=== PATIENT | male | born 1960 | race Caucasian/White ===

== ENCOUNTER → 2017-09-30 10:39 | Outpatient (CLI) | payer MEDICARE, SELFPAY ==
[2017-09-30 11:00] LABS: Abs Immature Grans 0.03 k/cumm (0.0-0.09); Absolute Basophil Count 0.01 k/cumm (0.0-0.2); Absolute Eosinophil Count 0.07 k/cumm (0.0-0.7); Absolute Lymphocyte Count 2.08 k/cumm (1.2-3.4); Absolute Monocyte Count 0.59 k/cumm (0.11-0.7); Absolute Neutrophil Count 5.06 k/cumm (1.2-6.7); Basophils % 0.1; Eosinophils % 0.9; HCT 45.2 % (40.0-50.0); HGB 15.1 g/dL (13.5-17.5); Immature Grans % 0.4; Lymphocytes % 26.5; Mean Corp. HGB Concentration 33.4 g/dL (32.0-36.0); Mean Corpuscular Hemoglobin 30.4 pg (27.0-33.0); Mean Corpuscular Volume 91.1 fL (80-95); Mean Platelet Volume 8.8 fL (8.0-11.0); Monocytes % 7.5; Neutrophils % 64.6; Platelet Count 281 x1000/uL (130-400); RBC 4.96 m/cumm (4.50-6.00); RBC Distribution Width 14.3 % (11.8-14.1); White Blood Cell Count 7.84 k/cumm (4.4-10.8)
== END ==
PROVIDERS: PCP Family Medicine; Visit Provider Nurse Practitioner
DX: F20.9 Schizophrenia, unspecified (principal); Z79.899 Other long term (current) drug therapy
CPT/HCPCS: 36415; 85025

== ENCOUNTER 2017-10-29 13:05 | Outpatient (CLI) | payer MEDICARE, SELFPAY ==
[2017-10-29 14:24] LABS: Abs Immature Grans 0.02 k/cumm (0.0-0.09); Absolute Basophil Count 0.04 k/cumm (0.0-0.2); Absolute Eosinophil Count 0.08 k/cumm (0.0-0.7); Absolute Lymphocyte Count 2.41 k/cumm (1.2-3.4); Absolute Monocyte Count 0.79 k/cumm (0.11-0.7); Absolute Neutrophil Count 7.21 k/cumm (1.2-6.7); Basophils % 0.4; Eosinophils % 0.8; HCT 43.8 % (40.0-50.0); HGB 14.5 g/dL (13.5-17.5); Immature Grans % 0.2; Lymphocytes % 22.8; Mean Corp. HGB Concentration 33.1 g/dL (32.0-36.0); Mean Corpuscular Hemoglobin 30.1 pg (27.0-33.0); Mean Corpuscular Volume 91.1 fL (80-95); Mean Platelet Volume 9.1 fL (8.0-11.0); Monocytes % 7.5; Neutrophils % 68.3; Platelet Count 305 x1000/uL (130-400); RBC 4.81 m/cumm (4.50-6.00); White Blood Cell Count 10.55 k/cumm (4.4-10.8)
== END 2017-10-29 13:25 ==
PROVIDERS: PCP Family Medicine; Visit Provider Nurse Practitioner
DX: F20.9 Schizophrenia, unspecified (principal); Z79.899 Other long term (current) drug therapy
CPT/HCPCS: 36415; 85025

== ENCOUNTER 2017-11-26 10:28 | Outpatient (CLI) | payer MEDICARE, SELFPAY ==
[2017-11-26 10:54] LABS: Abs Immature Grans 0.04 k/cumm (0.0-0.09); Absolute Basophil Count 0.02 k/cumm (0.0-0.2); Absolute Eosinophil Count 0.13 k/cumm (0.0-0.7); Absolute Lymphocyte Count 2.62 k/cumm (1.2-3.4); Absolute Monocyte Count 0.67 k/cumm (0.11-0.7); Absolute Neutrophil Count 4.81 k/cumm (1.2-6.7); Basophils % 0.2; Eosinophils % 1.6; HCT 46.8 % (40.0-50.0); HGB 15.4 g/dL (13.5-17.5); Immature Grans % 0.5; Lymphocytes % 31.6; Mean Corp. HGB Concentration 32.9 g/dL (32.0-36.0); Mean Corpuscular Hemoglobin 30.1 pg (27.0-33.0); Mean Corpuscular Volume 91.4 fL (80-95); Monocytes % 8.1; Platelet Count 301 x1000/uL (130-400); RBC 5.12 m/cumm (4.50-6.00); RBC Distribution Width 14.7 % (11.8-14.1); White Blood Cell Count 8.29 k/cumm (4.4-10.8)
== END 2017-11-26 10:48 ==
PROVIDERS: PCP Family Medicine; Visit Provider Nurse Practitioner
DX: F20.9 Schizophrenia, unspecified (principal); Z79.899 Other long term (current) drug therapy
CPT/HCPCS: 36415; 85025

== ENCOUNTER 2017-12-17 11:37 | Outpatient (CLI) | payer MEDICARE, SELFPAY ==
[2017-12-17 12:03] LABS: Abs Immature Grans 0.06 k/cumm (0.0-0.09); Absolute Basophil Count 0.02 k/cumm (0.0-0.2); Absolute Monocyte Count 0.76 k/cumm (0.11-0.7); Basophils % 0.2; Eosinophils % 0.9; HCT 44.9 % (40.0-50.0); Immature Grans % 0.5; Lymphocytes % 19.7; Mean Corp. HGB Concentration 33.4 g/dL (32.0-36.0); Mean Corpuscular Hemoglobin 30.4 pg (27.0-33.0); Mean Corpuscular Volume 90.9 fL (80-95); Mean Platelet Volume 8.8 fL (8.0-11.0); Monocytes % 6.6; Neutrophils % 72.1; Platelet Count 298 x1000/uL (130-400); RBC 4.94 m/cumm (4.50-6.00); RBC Distribution Width 14.3 % (11.8-14.1); White Blood Cell Count 11.55 k/cumm (4.4-10.8)
[2017-12-17 12:05] LABS: Absolute Lymphocyte Count 2.28 k/cumm (1.2-3.4); Absolute Neutrophil Count 8.33 k/cumm (1.2-6.7)
== END 2017-12-17 11:57 ==
PROVIDERS: PCP Family Medicine; Visit Provider Nurse Practitioner
DX: F20.9 Schizophrenia, unspecified (principal); Z79.899 Other long term (current) drug therapy
CPT/HCPCS: 36415; 85025

== ENCOUNTER 2018-01-16 11:12 | Outpatient (CLI) | payer MEDICARE, SELFPAY ==
[2018-01-16 12:57] LABS: Abs Immature Grans 0.05 k/cumm (0.0-0.09); Absolute Basophil Count 0.02 k/cumm (0.0-0.2); Absolute Eosinophil Count 0.05 k/cumm (0.0-0.7); Absolute Lymphocyte Count 2.14 k/cumm (1.2-3.4); Basophils % 0.1; Eosinophils % 0.3; HCT 46.5 % (40.0-50.0); HGB 15.4 g/dL (13.5-17.5); Immature Grans % 0.3; Lymphocytes % 12.8; Mean Corp. HGB Concentration 33.1 g/dL (32.0-36.0); Mean Corpuscular Hemoglobin 30.3 pg (27.0-33.0); Mean Corpuscular Volume 91.4 fL (80-95); Mean Platelet Volume 9.4 fL (8.0-11.0); Monocytes % 5.7; Neutrophils % 80.8; Platelet Count 343 x1000/uL (130-400); RBC 5.09 m/cumm (4.50-6.00); RBC Distribution Width 14.5 % (11.8-14.1); White Blood Cell Count 16.74 k/cumm (4.4-10.8)
[2018-01-16 13:01] LABS: Absolute Monocyte Count 0.95 k/cumm (0.11-0.7); Absolute Neutrophil Count 13.53 k/cumm (1.2-6.7)
== END 2018-01-16 11:32 ==
PROVIDERS: PCP Family Medicine; Visit Provider Nurse Practitioner
DX: F20.9 Schizophrenia, unspecified (principal); Z79.899 Other long term (current) drug therapy
CPT/HCPCS: 36415; 85025

== ENCOUNTER 2018-02-20 16:16 | Outpatient (CLI) | payer MEDICARE, MEDICAID, SELFPAY ==
[2018-02-20 16:53] LABS: Abs Immature Grans 0.02 k/cumm (0.0-0.09); Absolute Basophil Count 0.01 k/cumm (0.0-0.2); Absolute Eosinophil Count 0.07 k/cumm (0.0-0.7); Absolute Lymphocyte Count 2.21 k/cumm (1.2-3.4); Absolute Monocyte Count 0.56 k/cumm (0.11-0.7); Absolute Neutrophil Count 5.13 k/cumm (1.2-6.7); Basophils % 0.1; Eosinophils % 0.9; HCT 45.2 % (40.0-50.0); HGB 14.8 g/dL (13.5-17.5); Immature Grans % 0.3; Lymphocytes % 27.6; Mean Corp. HGB Concentration 32.7 g/dL (32.0-36.0); Mean Corpuscular Hemoglobin 29.9 pg (27.0-33.0); Mean Corpuscular Volume 91.3 fL (80-95); Neutrophils % 64.1; Platelet Count 297 x1000/uL (130-400); RBC 4.95 m/cumm (4.50-6.00); RBC Distribution Width 14.4 % (11.8-14.1)
== END 2018-02-20 16:36 ==
PROVIDERS: PCP Family Medicine; Visit Provider Nurse Practitioner
DX: F20.9 Schizophrenia, unspecified (principal); Z79.899 Other long term (current) drug therapy
CPT/HCPCS: 36415; 85025

== ENCOUNTER 2018-03-04 09:55 | Emergency (ER) | payer MEDICARE, MEDICAID, SELFPAY ==
[2018-03-04 10:04] VITALS: BP 117/63; PULSE 78; RESP 18; TEMP 36.2; O2SAT 97
--- NOTE | 2018-03-04 10:13 | DI.CT_ITS ---
SYMPTOMS/DIAGNOSIS: FLANK PAIN RENAL COLIC CT: Comparison is 07/22/08. Lack of IV contrast does limit evaluation of the abdominal and pelvic organs. Scarring or atelectatic changes are seen in the lung bases. The patient is status post cholecystectomy. The unenhanced visualized portions of the liver, spleen, pancreas and adrenal glands are unremarkable. There are bilateral nonobstructing renal stones. No ureterolithiasis or hydronephrosis is seen. The urinary bladder is intact. The reproductive organs are unremarkable. The aorta is of normal caliber. No significant abdominal or pelvic adenopathy, ascites or pneumoperitoneum is present. The bowel shows no evidence of obstruction or inflammation. Note is made of a small fat containing umbilical hernia. Degenerative changes are seen in the spine. IMPRESSION: Bilateral nephrolithiasis. No evidence of obstructive uropathy. The findings were discussed with the emergency department on the date of the examination.
--- NOTE | 2018-03-04 10:16 | W.ED.GENAD ---
Discharge Plan Disposition Patient Disposition: HOME Condition: Stable Discharge Details Chief Complaint: FlankPain Clinical Impression: Left flank pain, Back strain Primary Care Provider: Prudencio Borrego ED Provider: Rafael Garcia Home Meds and New Rx's Prescriptions: Continued clozapine 100 MG tablet 100 mg PO BID RF: 0 lamotrigine [Lamictal] 100 MG tablet 100 mg PO BID RF: 0 aripiprazole [Abilify] 20 MG tablet 20 mg PO DAILY RF: 0 aripiprazole [Abilify] 5 MG tablet 5 mg PO DAILY RF: 0 Discharge Instructions Instructions: Lower Back Exercises (ED) Additional Instructions: You can take 1000mg tylenol and 600mg ibuprofen every 6 hours for pain as needed If you have severe worsening pain, fevers or abdominal pain return to the emergency department Medical Decision Making Pt states for about a week he has had left lower back pain that comes and goes. He states it feels achy but also sharp and has never had pain like this before. Has pain in the left lower lumbar region. No midline pain. Denies fevers, ivdu, difficulty urinary and no changes in bowel habits. Has normal motor and gait and sensation in lower extremities without saddle anesthesia, no findings to suggest cauda equina or sea. No abdominal tenderness to suggest diverticulitis, appendicitis or other surgical pathology. Could be muscle strain but will evaluate for kidney stone and monitor. pt's labs unremarkable and CT per Dr. caldwell shows no acute findings. Still no neuro deficis or abdominal tenderness. Susecpt back strain. Will have him f/u with pcp and return precautions given Differential Diagnosis back strain, muscle spasm, kidney stone Imaging Data Radiologic Study: Attestation: I personally reviewed and interpreted this imaging study as follows: Imaging: CT Scan Radiologist's impression: no acute findings Lab Data Lab results reviewed: Yes I reviewed the patient's lab results. HPI General Mode of arrival: ambulatory. Date/Time Provider Initiated Documentation: 03/04/18 09:59. Limitations to Documentation: no limitations. Information obtained by: patient. History of Present Illness 58 year old M presents to the emergency department with the chief complaint of left flank pain, described as moderate, with intensity rated at 5. Quality is described as aching and sharp, and is localized to the back. Patient reports no radiation. Patient started experiencing this week(s) (1) and it has been intermittent. No relieving factors improve symptom(s), No exacerbating factors reported . Patient notes no other symptoms.. Patient did receive the following treatments prior to arrival, none Related Data Home Medications Medication Instructions Recorded Confirmed aripiprazole [Abilify] 5 mg PO DAILY tab-cap 07/31/13 02/28/15 aripiprazole [Abilify] 20 mg PO DAILY tab-cap 07/31/13 02/28/15 clozapine 100 mg PO BID tab-cap 07/31/13 02/28/15 lamotrigine [Lamictal] 100 mg PO BID tab-cap 07/31/13 02/28/15 Allergies Allergy/AdvReac Type Severity Reaction Status Date / Time No Known Allergies Allergy Unverified 06/18/16 09:06 General Stated Complaint: FlankPain RADHIKA: 3 Review of Systems Review of Systems All systems reviewed & are unremarkable except as noted in HPI and below Constitutional Denies chills, Denies fever(s) and Denies weakness Eyes Denies loss of vision ENT Denies change in voice Cardiovascular Denies chest pain Gastrointestinal Denies abdominal pain, Denies nausea and Denies vomiting Genitourinary Denies dysuria Integumentary/Breasts Denies rash Neurologic Denies loss of vision and Denies weakness PFSH Surgical History Appendectomy Family History Mother Essential hypertension Depression Heart disease Father Heart disease Stroke Sister Depression Neoplasm Brother Heart disease Maternal Grandfather Depression Cancer Paternal Grandfather Stroke Maternal Grandmother Heart disease Paternal Grandmother Heart disease Son No problems noted. Son No problems noted. Daughter Diabetes Depression Daughter No problems noted. Brother Essential hypertension Heart disease Social History household members: other details: 3 current occupational status: employed current occupation: ASSURANCE SOURCING MANAGER pets and animals: Yes pets and animals: cat(s) and dog(s) frequency: 3-4 times per week duration: 30-45 minutes/day Smoking/Tobacco Use Status: Never alcohol intake: never substance use type: does not use cathleen/nondenominational: Gurpreet special cathleen needs: No Exam Const General: no acute distress Orientation: alert HENMT Head: normal to inspection Ears: external ears normal General nose exam: external nose normal Mouth: moist mucous membranes Eyes General: appearance normal, both eyes and all related structures Neck Neck: normal visual inspection Resp Effort & Inspection: normal respiratory effort and able to speak in complete sentences Cardio Rate: regular rate GI Palpation: soft and nontender Back/Spine/Pelvis Back: no CVA tenderness Skin General skin exam: no rashes or lesions noted Neuro General: alert and oriented x3 Extrem General: normal to inspection Psych Mental Status: mental status grossly normal Course Vital Signs Temperature 36.2 C L 03/04/18 10:04 Pulse 78 03/04/18 10:04 Respiratory Rate 18 03/04/18 10:04 Blood Pressure 117/63 03/04/18 10:04 Pulse Oximetry 97 03/04/18 10:04 Temperature 36.2 C L 03/04/18 10:04 Temperature Source Temporal Artery Scan 03/04/18 10:04 Pulse 78 03/04/18 10:04 Respiratory Rate 18 03/04/18 10:04 Respiratory Effort Non-Labored 03/04/18 10:07 Blood Pressure 117/63 03/04/18 10:04 Blood Pressure Position Sitting 03/04/18 10:04 Pulse Oximetry 97 03/04/18 10:04 Oxygen Delivery Method Room Air 03/04/18 10:04 Oxygen Flow Rate 0 03/04/18 10:04 Pain Level 5 03/04/18 10:04 Comment 03/04/18 10:04
[2018-03-04] MEDS: Ketorolac 15 MG/ML VIAL IVP (10:28)
[2018-03-04] MEDS: Ondansetron 4 MG/2 ML VIAL IVP (10:28)
[2018-03-04] MEDS: Normal Saline 1,000 ML 1000 ML IV (10:30)
--- NOTE | 2018-03-04 10:38 | NUR.NOTE ---
Nursing Note: Pt states for last week or so sharp left flank pain that radiates to groin. denies any urinary symptoms or n/v. medicated as ordered. plan for urine. labs and CT. no acute distress. resting in bed with IVF infusing, will continue to monitor.
[2018-03-04 10:42] LABS: Bilirubin Negative (Negative); Blood Negative (Negative); Clarity Clear; Glucose Negative (Negative); Ketones Negative (Negative); Leukocyte Esterase Negative (Negative); Nitrite Negative (Negative); Specific Gravity >= 1.030 (1.005-1.025); Urobilinogen 0.2 EU/dL (Up TO 0.2); pH 6.5 (5-8)
[2018-03-04 10:44] LABS: Abs Immature Grans 0.03 k/cumm (0.0-0.09); Absolute Basophil Count 0.01 k/cumm (0.0-0.2); Absolute Eosinophil Count 0.07 k/cumm (0.0-0.7); Absolute Monocyte Count 0.43 k/cumm (0.11-0.7); Absolute Neutrophil Count 4.84 k/cumm (1.2-6.7); Basophils % 0.1; HCT 45.2 % (40.0-50.0); HGB 14.8 g/dL (13.5-17.5); Immature Grans % 0.4; Lymphocytes % 25.1; Mean Corp. HGB Concentration 32.7 g/dL (32.0-36.0); Mean Corpuscular Volume 91.5 fL (80-95); Neutrophils % 67.4; Platelet Count 283 x1000/uL (130-400); RBC 4.94 m/cumm (4.50-6.00); RBC Distribution Width 14.4 % (11.8-14.1); White Blood Cell Count 7.18 k/cumm (4.4-10.8)
[2018-03-04 10:56] LABS: Bacteria Rare HPF (Negative); C & S Indicated? No; Casts Negative LPF (Negative); Crystals Negative HPF (Negative); Epithelial Cells Rare HPF (Negative); Mucus Moderate (Negative); RBC Negative (0-2)
[2018-03-04 10:59] VITALS: BP 132/61; PULSE 81; RESP 18; TEMP 36.4; O2SAT 99
[2018-03-04 11:00] LABS: ALT 40 U/L (12-78); AST 19 U/L (15-37); Albumin 3.7 g/dL (3.4-5.0); Alkaline Phosphatase 98 U/L (46-116); Anion Gap 7.5 mmol/L (3-11); BUN 18 mg/dL (7-18); Bilirubin, Direct 0.12 mg/dL (0.00-0.20); Bilirubin, Total 0.4 mg/dL (0.2-1.0); CO2 27.5 mmol/L (21.0-32.0); CREATININE 1.19 mg/dL (0.70-1.30); Calcium 8.1 mg/dL (8.5-10.1); Chloride 106 mmol/L (98-107); Glucose 108 mg/dL (70-100); Lipase 90 U/L (73-393); Potassium 4.2 mmol/L (3.5-5.1); Sodium 141 mmol/L (136-145); Total Protein 6.8 g/dL (6.4-8.2)
--- NOTE | 2018-03-05 09:27 | PDOC.ERCMPRO ---
Care Management Progress Note 03/05-Dr. Garcia requested assistance with a PCP (Elmo) f/u in one week for back pain. Referral faxed to [facility] this am.
== END 2018-03-04 11:49 | disposition home or self-care (01) ==
PROVIDERS: Emergency Provider Emergency Medicine; PCP Family Medicine
DX: S39.012A Strain of muscle, fascia and tendon of lower back, initial encounter (principal); R10.9 Unspecified abdominal pain; X58.XXXA Exposure to other specified factors, initial encounter
CPT/HCPCS: 36415; 80053; 80076; 83690; 96361; 96374; 96375; 99284; 74176; 81003; 81015; 83735; 85025; J1885; J2405

== ENCOUNTER 2018-03-24 09:56 | Outpatient (CLI) | payer MEDICARE, MEDICAID, SELFPAY ==
[2018-03-24 10:26] LABS: Abs Immature Grans 0.03 k/cumm (0.0-0.09); Absolute Basophil Count 0.02 k/cumm (0.0-0.2); Absolute Eosinophil Count 0.07 k/cumm (0.0-0.7); Absolute Lymphocyte Count 2.17 k/cumm (1.2-3.4); Absolute Monocyte Count 0.67 k/cumm (0.11-0.7); Absolute Neutrophil Count 5.36 k/cumm (1.2-6.7); Basophils % 0.2; Eosinophils % 0.8; HCT 46.5 % (40.0-50.0); HGB 15.2 g/dL (13.5-17.5); Immature Grans % 0.4; Lymphocytes % 26.1; Mean Corp. HGB Concentration 32.7 g/dL (32.0-36.0); Mean Corpuscular Volume 91.9 fL (80-95); Monocytes % 8.1; Neutrophils % 64.4; Platelet Count 282 x1000/uL (130-400); RBC 5.06 m/cumm (4.50-6.00); RBC Distribution Width 14.5 % (11.8-14.1); White Blood Cell Count 8.32 k/cumm (4.4-10.8)
== END 2018-03-24 10:16 ==
PROVIDERS: PCP Family Medicine; Visit Provider Nurse Practitioner
DX: F20.9 Schizophrenia, unspecified (principal); Z79.899 Other long term (current) drug therapy
CPT/HCPCS: 36415; 85025

== ENCOUNTER 2018-04-14 10:53 | Outpatient (CLI) | payer MEDICARE, MEDICAID, SELFPAY ==
[2018-04-14 11:33] LABS: Abs Immature Grans 0.02 k/cumm (0.0-0.09); Absolute Basophil Count 0.01 k/cumm (0.0-0.2); Absolute Eosinophil Count 0.05 k/cumm (0.0-0.7); Absolute Lymphocyte Count 1.94 k/cumm (1.2-3.4); Absolute Monocyte Count 0.47 k/cumm (0.11-0.7); Absolute Neutrophil Count 3.94 k/cumm (1.2-6.7); Basophils % 0.2; Eosinophils % 0.8; HCT 45.4 % (40.0-50.0); Immature Grans % 0.3; Lymphocytes % 30.2; Mean Corpuscular Hemoglobin 29.9 pg (27.0-33.0); Mean Corpuscular Volume 90.6 fL (80-95); Mean Platelet Volume 9.4 fL (8.0-11.0); Monocytes % 7.3; Neutrophils % 61.2; Platelet Count 302 x1000/uL (130-400); RBC 5.01 m/cumm (4.50-6.00); RBC Distribution Width 14.3 % (11.8-14.1); White Blood Cell Count 6.43 k/cumm (4.4-10.8)
[2018-04-14 12:33] LABS: ALT 36 U/L (12-78); AST 19 U/L (15-37); Albumin 4.3 g/dL (3.4-5.0); Alkaline Phosphatase 115 U/L (46-116); BUN 18 mg/dL (7-18); Bilirubin, Direct 0.13 mg/dL (0.00-0.20); Bilirubin, Total 0.4 mg/dL (0.2-1.0); CREATININE 1.19 mg/dL (0.70-1.30); Calcium 9.2 mg/dL (8.5-10.1); Chloride 103 mmol/L (98-107); Glucose 106 mg/dL (70-100); Potassium 4.5 mmol/L (3.5-5.1); Sodium 141 mmol/L (136-145); TSH 0.68 uIU/mL (0.358-3.74); Total Protein 7.4 g/dL (6.4-8.2)
[2018-04-14 12:44] LABS: Cholesterol 273 mg/dL (50-200); HDL Cholesterol 48 mg/dL (40-60); LDL CHOLESTEROL 183 mg/dL (<100); Triglyceride 190 mg/dL (30-150)
== END 2018-04-14 11:13 ==
PROVIDERS: PCP Family Medicine; Visit Provider Nurse Practitioner
DX: F50.9 Eating disorder, unspecified (principal); Z79.899 Other long term (current) drug therapy
CPT/HCPCS: 36415; 80053; 80061; 80076; 83721; 84443; 85025

== ENCOUNTER 2018-05-22 15:57 | Outpatient (CLI) | payer MEDICARE, MEDICAID, SELFPAY ==
[2018-05-22 16:41] LABS: Abs Immature Grans 0.01 k/cumm (0.0-0.09); Absolute Basophil Count 0.01 k/cumm (0.0-0.2); Absolute Eosinophil Count 0.09 k/cumm (0.0-0.7); Absolute Lymphocyte Count 2.06 k/cumm (1.2-3.4); Absolute Monocyte Count 0.55 k/cumm (0.11-0.7); Absolute Neutrophil Count 5.18 k/cumm (1.2-6.7); Basophils % 0.1; Eosinophils % 1.1; HCT 42.6 % (40.0-50.0); HGB 14.3 g/dL (13.5-17.5); Immature Grans % 0.1; Lymphocytes % 26.1; Mean Corp. HGB Concentration 33.6 g/dL (32.0-36.0); Mean Corpuscular Volume 89.5 fL (80-95); Mean Platelet Volume 9.1 fL (8.0-11.0); Neutrophils % 65.6; Platelet Count 321 x1000/uL (130-400); RBC 4.76 m/cumm (4.50-6.00); RBC Distribution Width 14.1 % (11.8-14.1)
== END 2018-05-22 16:17 ==
PROVIDERS: PCP Family Medicine; Visit Provider Nurse Practitioner
DX: F20.9 Schizophrenia, unspecified (principal); Z79.899 Other long term (current) drug therapy
CPT/HCPCS: 36415; 85025

== ENCOUNTER 2018-06-23 15:01 | Outpatient (CLI) | payer MEDICARE, MEDICAID, SELFPAY ==
[2018-06-23 15:28] LABS: Abs Immature Grans 0.02 k/cumm (0.0-0.09); Absolute Basophil Count 0.02 k/cumm (0.0-0.2); Absolute Eosinophil Count 0.14 k/cumm (0.0-0.7); Absolute Lymphocyte Count 2.53 k/cumm (1.2-3.4); Absolute Monocyte Count 0.63 k/cumm (0.11-0.7); Absolute Neutrophil Count 5.52 k/cumm (1.2-6.7); Basophils % 0.2; Eosinophils % 1.6; HCT 43.7 % (40.0-50.0); HGB 14.8 g/dL (13.5-17.5); Immature Grans % 0.2; Lymphocytes % 28.6; Mean Corp. HGB Concentration 33.9 g/dL (32.0-36.0); Mean Corpuscular Hemoglobin 30.6 pg (27.0-33.0); Mean Corpuscular Volume 90.5 fL (80-95); Mean Platelet Volume 8.7 fL (8.0-11.0); Monocytes % 7.1; Neutrophils % 62.3; Platelet Count 316 x1000/uL (130-400); RBC 4.83 m/cumm (4.50-6.00); RBC Distribution Width 14.5 % (11.8-14.1); White Blood Cell Count 8.86 k/cumm (4.4-10.8)
== END 2018-06-23 15:21 ==
PROVIDERS: PCP Family Medicine; Visit Provider Nurse Practitioner
DX: F20.9 Schizophrenia, unspecified (principal); Z79.899 Other long term (current) drug therapy
CPT/HCPCS: 36415; 85025

== ENCOUNTER 2018-07-21 16:23 | Outpatient (CLI) | payer MEDICARE, MEDICAID, SELFPAY ==
[2018-07-21 16:56] LABS: Abs Immature Grans 0.03 k/cumm (0.0-0.09); Absolute Basophil Count 0.02 k/cumm (0.0-0.2); Absolute Eosinophil Count 0.09 k/cumm (0.0-0.7); Absolute Lymphocyte Count 2.43 k/cumm (1.2-3.4); Absolute Monocyte Count 0.63 k/cumm (0.11-0.7); Absolute Neutrophil Count 5.92 k/cumm (1.2-6.7); Basophils % 0.2; HCT 42.6 % (40.0-50.0); HGB 14.3 g/dL (13.5-17.5); Immature Grans % 0.3; Lymphocytes % 26.6; Mean Corp. HGB Concentration 33.6 g/dL (32.0-36.0); Mean Corpuscular Hemoglobin 30.6 pg (27.0-33.0); Mean Platelet Volume 9.2 fL (8.0-11.0); Monocytes % 6.9; Platelet Count 303 x1000/uL (130-400); RBC 4.68 m/cumm (4.50-6.00); RBC Distribution Width 14.2 % (11.8-14.1); White Blood Cell Count 9.12 k/cumm (4.4-10.8)
== END 2018-07-21 16:43 ==
PROVIDERS: PCP Family Medicine; Visit Provider Nurse Practitioner
DX: F20.9 Schizophrenia, unspecified (principal); Z79.899 Other long term (current) drug therapy
CPT/HCPCS: 36415; 85025

== ENCOUNTER 2018-08-21 10:40 | Outpatient (CLI) | payer MEDICARE, MEDICAID, SELFPAY ==
[2018-08-21 11:22] LABS: Abs Immature Grans 0.02 k/cumm (0.0-0.09); Absolute Basophil Count 0.02 k/cumm (0.0-0.2); Absolute Eosinophil Count 0.07 k/cumm (0.0-0.7); Absolute Lymphocyte Count 2.11 k/cumm (1.2-3.4); Absolute Monocyte Count 0.67 k/cumm (0.11-0.7); Basophils % 0.3; Eosinophils % 0.9; HCT 44.9 % (40.0-50.0); HGB 15.1 g/dL (13.5-17.5); Immature Grans % 0.3; Lymphocytes % 27.8; Mean Corp. HGB Concentration 33.6 g/dL (32.0-36.0); Mean Corpuscular Hemoglobin 30.6 pg (27.0-33.0); Mean Corpuscular Volume 91.1 fL (80-95); Mean Platelet Volume 9.3 fL (8.0-11.0); Monocytes % 8.8; Neutrophils % 61.9; Platelet Count 290 x1000/uL (130-400); RBC 4.93 m/cumm (4.50-6.00); RBC Distribution Width 14.4 % (11.8-14.1); White Blood Cell Count 7.59 k/cumm (4.4-10.8)
== END 2018-08-21 11:00 ==
PROVIDERS: PCP Family Medicine; Visit Provider Nurse Practitioner
DX: F20.9 Schizophrenia, unspecified (principal); Z79.899 Other long term (current) drug therapy
CPT/HCPCS: 36415; 85025

== ENCOUNTER 2018-09-18 09:49 | Outpatient (CLI) | payer MEDICARE, MEDICAID, SELFPAY ==
[2018-09-18 10:26] LABS: Abs Immature Grans 0.02 k/cumm (0.0-0.09); Absolute Basophil Count 0.02 k/cumm (0.0-0.2); Absolute Eosinophil Count 0.07 k/cumm (0.0-0.7); Absolute Lymphocyte Count 2.83 k/cumm (1.2-3.4); Absolute Monocyte Count 0.74 k/cumm (0.11-0.7); Absolute Neutrophil Count 4.22 k/cumm (1.2-6.7); Basophils % 0.3; Eosinophils % 0.9; HCT 44.4 % (40.0-50.0); HGB 14.9 g/dL (13.5-17.5); Immature Grans % 0.3; Lymphocytes % 35.8; Mean Corp. HGB Concentration 33.6 g/dL (32.0-36.0); Mean Corpuscular Hemoglobin 30.7 pg (27.0-33.0); Mean Corpuscular Volume 91.4 fL (80-95); Mean Platelet Volume 8.9 fL (8.0-11.0); Monocytes % 9.4; Neutrophils % 53.3; Platelet Count 293 x1000/uL (130-400); RBC 4.86 m/cumm (4.50-6.00); RBC Distribution Width 14.1 % (11.8-14.1)
== END 2018-09-18 10:09 ==
PROVIDERS: PCP Family Medicine; Visit Provider Nurse Practitioner Psychiatric/Mental Health
DX: F20.9 Schizophrenia, unspecified (principal); Z79.899 Other long term (current) drug therapy
CPT/HCPCS: 36415; 85025

== ENCOUNTER 2018-10-22 09:05 | Outpatient (CLI) | payer MEDICARE, MEDICAID, SELFPAY ==
[2018-10-22 09:39] LABS: Abs Immature Grans 0.03 k/cumm (0.0-0.09); Absolute Basophil Count 0.02 k/cumm (0.0-0.2); Absolute Eosinophil Count 0.08 k/cumm (0.0-0.7); Absolute Lymphocyte Count 2.23 k/cumm (1.2-3.4); Absolute Monocyte Count 0.53 k/cumm (0.11-0.7); Absolute Neutrophil Count 5.37 k/cumm (1.2-6.7); Basophils % 0.2; HCT 45.1 % (40.0-50.0); HGB 14.8 g/dL (13.5-17.5); Immature Grans % 0.4; Mean Corp. HGB Concentration 32.8 g/dL (32.0-36.0); Mean Corpuscular Volume 91.5 fL (80-95); Mean Platelet Volume 9.1 fL (8.0-11.0); Monocytes % 6.4; Platelet Count 307 x1000/uL (130-400); RBC 4.93 m/cumm (4.50-6.00); RBC Distribution Width 14.2 % (11.8-14.1); White Blood Cell Count 8.26 k/cumm (4.4-10.8)
== END 2018-10-22 09:25 ==
PROVIDERS: PCP Family Medicine; Referring Provider Nurse Practitioner Psychiatric/Mental Health; Visit Provider Family Medicine
DX: F20.9 Schizophrenia, unspecified (principal); Z79.899 Other long term (current) drug therapy
CPT/HCPCS: 36415; 85025

== ENCOUNTER 2018-11-19 13:31 | Outpatient (CLI) | payer MEDICARE, MEDICAID, SELFPAY ==
[2018-11-19 14:10] LABS: Abs Immature Grans 0.02 k/cumm (0.0-0.09); Absolute Basophil Count 0.01 k/cumm (0.0-0.2); Absolute Eosinophil Count 0.07 k/cumm (0.0-0.7); Absolute Lymphocyte Count 1.98 k/cumm (1.2-3.4); Absolute Monocyte Count 0.55 k/cumm (0.11-0.7); Absolute Neutrophil Count 5.23 k/cumm (1.2-6.7); Basophils % 0.1; Eosinophils % 0.9; HCT 43.4 % (40.0-50.0); HGB 14.3 g/dL (13.5-17.5); Immature Grans % 0.3; Lymphocytes % 25.2; Mean Corp. HGB Concentration 32.9 g/dL (32.0-36.0); Mean Corpuscular Hemoglobin 29.5 pg (27.0-33.0); Mean Corpuscular Volume 89.7 fL (80-95); Mean Platelet Volume 8.9 fL (8.0-11.0); Neutrophils % 66.5; Platelet Count 308 x1000/uL (130-400); RBC 4.84 m/cumm (4.50-6.00); RBC Distribution Width 14.5 % (11.8-14.1); White Blood Cell Count 7.86 k/cumm (4.4-10.8)
== END 2018-11-19 13:51 ==
PROVIDERS: PCP Family Medicine; Visit Provider Nurse Practitioner Psychiatric/Mental Health
DX: F20.9 Schizophrenia, unspecified (principal); Z79.899 Other long term (current) drug therapy
CPT/HCPCS: 36415; 85025

== ENCOUNTER 2018-12-18 09:49 | Outpatient (CLI) | payer MEDICARE, MEDICAID, SELFPAY ==
[2018-12-18 10:07] LABS: Abs Immature Grans 0.04 k/cumm (0.0-0.09); Absolute Basophil Count 0.01 k/cumm (0.0-0.2); Absolute Eosinophil Count 0.11 k/cumm (0.0-0.7); Absolute Lymphocyte Count 2.62 k/cumm (1.2-3.4); Absolute Monocyte Count 0.69 k/cumm (0.11-0.7); Absolute Neutrophil Count 4.32 k/cumm (1.2-6.7); Basophils % 0.1; Eosinophils % 1.4; HCT 44.6 % (40.0-50.0); HGB 14.7 g/dL (13.5-17.5); Immature Grans % 0.5; Lymphocytes % 33.6; Mean Corpuscular Hemoglobin 30.1 pg (27.0-33.0); Mean Corpuscular Volume 91.2 fL (80-95); Mean Platelet Volume 8.8 fL (8.0-11.0); Monocytes % 8.9; Neutrophils % 55.5; Platelet Count 302 x1000/uL (130-400); RBC 4.89 m/cumm (4.50-6.00); RBC Distribution Width 14.6 % (11.8-14.1); White Blood Cell Count 7.79 k/cumm (4.4-10.8)
== END 2018-12-18 10:09 ==
PROVIDERS: PCP Family Medicine; Visit Provider Nurse Practitioner Psychiatric/Mental Health
DX: F20.9 Schizophrenia, unspecified (principal); Z79.899 Other long term (current) drug therapy
CPT/HCPCS: 36415; 85025

== ENCOUNTER 2019-01-14 11:30 | Outpatient (CLI) | payer MEDICARE, MEDICAID, SELFPAY ==
[2019-01-14 12:05] LABS: Abs Immature Grans 0.03 k/cumm (0.0-0.09); Absolute Basophil Count 0.02 k/cumm (0.0-0.2); Absolute Eosinophil Count 0.11 k/cumm (0.0-0.7); Absolute Lymphocyte Count 2.18 k/cumm (1.2-3.4); Absolute Monocyte Count 0.69 k/cumm (0.11-0.7); Absolute Neutrophil Count 6.36 k/cumm (1.2-6.7); Basophils % 0.2; Eosinophils % 1.2; HCT 44.7 % (40.0-50.0); HGB 14.7 g/dL (13.5-17.5); Immature Grans % 0.3; Lymphocytes % 23.2; Mean Corp. HGB Concentration 32.9 g/dL (32.0-36.0); Mean Corpuscular Hemoglobin 29.9 pg (27.0-33.0); Monocytes % 7.3; Neutrophils % 67.8; Platelet Count 334 x1000/uL (130-400); RBC 4.91 m/cumm (4.50-6.00); RBC Distribution Width 14.6 % (11.8-14.1); White Blood Cell Count 9.39 k/cumm (4.4-10.8)
== END 2019-01-14 11:50 ==
PROVIDERS: PCP Family Medicine; Visit Provider Nurse Practitioner Psychiatric/Mental Health
DX: F20.9 Schizophrenia, unspecified (principal); Z79.899 Other long term (current) drug therapy
CPT/HCPCS: 36415; 85025

== ENCOUNTER 2019-02-12 08:58 | Outpatient (CLI) | payer MEDICARE, MEDICAID, SELFPAY ==
[2019-02-12 09:26] LABS: Abs Immature Grans 0.04 k/cumm (0.0-0.09); Absolute Basophil Count 0.03 k/cumm (0.0-0.2); Absolute Eosinophil Count 0.26 k/cumm (0.0-0.7); Absolute Monocyte Count 0.78 k/cumm (0.11-0.7); Absolute Neutrophil Count 5.46 k/cumm (1.2-6.7); Basophils % 0.3; Eosinophils % 2.9; HCT 43.6 % (40.0-50.0); HGB 14.6 g/dL (13.5-17.5); Immature Grans % 0.5; Lymphocytes % 25.9; Mean Corp. HGB Concentration 33.5 g/dL (32.0-36.0); Mean Corpuscular Hemoglobin 30.6 pg (27.0-33.0); Mean Corpuscular Volume 91.4 fL (80-95); Mean Platelet Volume 8.7 fL (8.0-11.0); Monocytes % 8.8; Neutrophils % 61.6; Platelet Count 321 x1000/uL (130-400); RBC 4.77 m/cumm (4.50-6.00); RBC Distribution Width 14.4 % (11.8-14.1); White Blood Cell Count 8.87 k/cumm (4.4-10.8)
== END 2019-02-12 09:18 ==
PROVIDERS: PCP Family Medicine; Visit Provider Nurse Practitioner Psychiatric/Mental Health
DX: F20.9 Schizophrenia, unspecified (principal); Z79.899 Other long term (current) drug therapy
CPT/HCPCS: 36415; 85025

== ENCOUNTER 2019-03-18 13:39 | Outpatient (CLI) | payer MEDICARE, MEDICAID, SELFPAY ==
[2019-03-18 14:17] LABS: Abs Immature Grans 0.03 k/cumm (0.0-0.09); Absolute Basophil Count 0.02 k/cumm (0.0-0.2); Absolute Lymphocyte Count 2.16 k/cumm (1.2-3.4); Absolute Monocyte Count 0.61 k/cumm (0.11-0.7); Absolute Neutrophil Count 5.34 k/cumm (1.2-6.7); Basophils % 0.2; Eosinophils % 1.2; HCT 43.4 % (40.0-50.0); HGB 14.3 g/dL (13.5-17.5); Immature Grans % 0.4 %; Lymphocytes % 26.2; Mean Corp. HGB Concentration 32.9 g/dL (32.0-36.0); Mean Corpuscular Hemoglobin 30.1 pg (27.0-33.0); Mean Corpuscular Volume 91.4 fL (80-95); Monocytes % 7.4; Neutrophils % 64.6; Platelet Count 328 x1000/uL (130-400); RBC 4.75 m/cumm (4.50-6.00); RBC Distribution Width 14.3 % (11.8-14.1); White Blood Cell Count 8.26 k/cumm (4.4-10.8)
== END 2019-03-18 13:59 ==
PROVIDERS: PCP Family Medicine; Visit Provider Nurse Practitioner Psychiatric/Mental Health
DX: F20.9 Schizophrenia, unspecified (principal); Z79.899 Other long term (current) drug therapy
CPT/HCPCS: 36415; 85025

== ENCOUNTER 2019-04-14 12:43 | Outpatient (CLI) | payer MEDICARE, MEDICAID, SELFPAY ==
[2019-04-14 13:09] LABS: Abs Immature Grans 0.04 k/cumm (0.0-0.09); Absolute Basophil Count 0.01 k/cumm (0.0-0.2); Absolute Eosinophil Count 0.13 k/cumm (0.0-0.7); Absolute Lymphocyte Count 2.61 k/cumm (1.2-3.4); Absolute Neutrophil Count 7.52 k/cumm (1.2-6.7); Basophils % 0.1; Eosinophils % 1.2; HCT 44.8 % (40.0-50.0); HGB 14.7 g/dL (13.5-17.5); Immature Grans % 0.4 %; Lymphocytes % 23.9; Mean Corp. HGB Concentration 32.8 g/dL (32.0-36.0); Mean Corpuscular Hemoglobin 30.1 pg (27.0-33.0); Mean Corpuscular Volume 91.6 fL (80-95); Monocytes % 5.5; Neutrophils % 68.9; Platelet Count 338 x1000/uL (130-400); RBC 4.89 m/cumm (4.50-6.00); RBC Distribution Width 14.3 % (11.8-14.1); White Blood Cell Count 10.91 k/cumm (4.4-10.8)
[2019-04-14 14:26] LABS: Calculated LDL 122 mg/dL (<100); Cholesterol 205 mg/dL (<200); HDL Cholesterol 49 mg/dL (40-60); TSH 0.77 uIU/mL (0.36-3.74); Triglyceride 173 mg/dL (<150)
[2019-04-15 15:10] LABS: ALT 26 U/L (16-63); AST 18 U/L (15-37); Albumin 4.2 g/dL (3.4-5.0); Alkaline Phosphatase 112 U/L (46-116); Anion Gap 13.6 mmol/L (3-11); BUN 17 mg/dL (7-18); Bilirubin, Direct 0.08 mg/dL (0.00-0.20); Bilirubin, Total 0.3 mg/dL (0.2-1.0); CO2 25.4 mmol/L (21.0-32.0); CREATININE 1.43 mg/dL (0.70-1.30); Chloride 103 mmol/L (98-107); Estimated GFR 50.28 (mL/min/1.73m2); Glucose 147 mg/dL (74-106); Potassium 4.3 mmol/L (3.5-5.1); Sodium 142 mmol/L (136-145)
== END 2019-04-14 13:03 ==
PROVIDERS: PCP Family Medicine; Visit Provider Nurse Practitioner Psychiatric/Mental Health
DX: F20.9 Schizophrenia, unspecified (principal); Z79.899 Other long term (current) drug therapy
CPT/HCPCS: 36415; 80053; 80061; 80076; 84443; 85025

== ENCOUNTER 2019-05-20 00:55 | Outpatient (CLI) | payer MEDICARE, MEDICAID, SELFPAY ==
[2019-05-20 10:59] LABS: Abs Immature Grans 0.03 k/cumm (0.0-0.09); Absolute Basophil Count 0.01 k/cumm (0.0-0.2); Absolute Eosinophil Count 0.12 k/cumm (0.0-0.7); Absolute Lymphocyte Count 2.34 k/cumm (1.2-3.4); Absolute Neutrophil Count 6.53 k/cumm (1.2-6.7); Basophils % 0.1; Eosinophils % 1.2; HCT 43.8 % (40.0-50.0); HGB 14.5 g/dL (13.5-17.5); Immature Grans % 0.3 %; Mean Corp. HGB Concentration 33.1 g/dL (32.0-36.0); Mean Corpuscular Hemoglobin 30.1 pg (27.0-33.0); Mean Corpuscular Volume 91.1 fL (80-95); Mean Platelet Volume 9.1 fL (8.0-11.0); Monocytes % 7.2; Neutrophils % 67.2; Platelet Count 329 x1000/uL (130-400); RBC 4.81 m/cumm (4.50-6.00); RBC Distribution Width 14.4 % (11.8-14.1); White Blood Cell Count 9.73 k/cumm (4.4-10.8)
== END 2019-05-20 01:15 ==
PROVIDERS: PCP Family Medicine; Visit Provider Nurse Practitioner Psychiatric/Mental Health
DX: F20.9 Schizophrenia, unspecified (principal); Z79.899 Other long term (current) drug therapy
CPT/HCPCS: 36415; 85025

== ENCOUNTER 2019-06-19 02:52 | Outpatient (CLI) | payer MEDICARE, MEDICAID, SELFPAY ==
[2019-06-19 07:48] LABS: Abs Immature Grans 0.04 k/cumm (0.0-0.09); Absolute Basophil Count 0.02 k/cumm (0.0-0.2); Absolute Eosinophil Count 0.16 k/cumm (0.0-0.7); Absolute Lymphocyte Count 3.13 k/cumm (1.2-3.4); Absolute Monocyte Count 0.65 k/cumm (0.11-0.7); Basophils % 0.2; HCT 43.7 % (40.0-50.0); HGB 14.4 g/dL (13.5-17.5); Immature Grans % 0.5 %; Lymphocytes % 38.2; Mean Corpuscular Hemoglobin 29.8 pg (27.0-33.0); Mean Corpuscular Volume 90.5 fL (80-95); Monocytes % 7.9; Neutrophils % 51.2; Platelet Count 339 x1000/uL (130-400); RBC 4.83 m/cumm (4.50-6.00); RBC Distribution Width 14.4 % (11.8-14.1)
== END 2019-06-19 03:12 ==
PROVIDERS: PCP Family Medicine; Visit Provider Nurse Practitioner Psychiatric/Mental Health
DX: F20.9 Schizophrenia, unspecified (principal); Z79.899 Other long term (current) drug therapy
CPT/HCPCS: 36415; 85025

== ENCOUNTER 2019-07-17 03:15 | Outpatient (CLI) | payer MEDICARE, MEDICAID, SELFPAY ==
[2019-07-17 09:38] LABS: Abs Immature Grans 0.02 k/cumm (0.0-0.09); Absolute Basophil Count 0.02 k/cumm (0.0-0.2); Absolute Eosinophil Count 0.08 k/cumm (0.0-0.7); Absolute Lymphocyte Count 2.21 k/cumm (1.2-3.4); Absolute Monocyte Count 0.66 k/cumm (0.11-0.7); Absolute Neutrophil Count 4.88 k/cumm (1.2-6.7); Basophils % 0.3; HGB 14.3 g/dL (13.5-17.5); Immature Grans % 0.3 %; Lymphocytes % 28.1; Mean Corp. HGB Concentration 33.3 g/dL (32.0-36.0); Mean Corpuscular Hemoglobin 30.1 pg (27.0-33.0); Mean Corpuscular Volume 90.5 fL (80-95); Mean Platelet Volume 8.6 fL (8.0-11.0); Monocytes % 8.4; Neutrophils % 61.9; Platelet Count 324 x1000/uL (130-400); RBC 4.75 m/cumm (4.50-6.00); RBC Distribution Width 14.8 % (11.8-14.1); White Blood Cell Count 7.87 k/cumm (4.4-10.8)
== END 2019-07-17 03:35 ==
PROVIDERS: PCP Family Medicine; Visit Provider Nurse Practitioner Psychiatric/Mental Health
DX: F20.9 Schizophrenia, unspecified (principal); Z79.899 Other long term (current) drug therapy
CPT/HCPCS: 36415; 85025

== ENCOUNTER 2019-08-04 00:57 | Outpatient (CLI) | payer MEDICARE, MEDICAID, SELFPAY ==
[2019-08-04 12:42] LABS: Abs Immature Grans 0.01 k/cumm (0.0-0.09); Absolute Basophil Count 0.01 k/cumm (0.0-0.2); Absolute Eosinophil Count 0.07 k/cumm (0.0-0.7); Absolute Lymphocyte Count 2.12 k/cumm (1.2-3.4); Absolute Monocyte Count 0.78 k/cumm (0.11-0.7); Basophils % 0.1; Eosinophils % 0.7; HCT 41.1 % (40.0-50.0); HGB 13.7 g/dL (13.5-17.5); Immature Grans % 0.1 %; Lymphocytes % 22.1; Mean Corp. HGB Concentration 33.3 g/dL (32.0-36.0); Mean Corpuscular Hemoglobin 30.2 pg (27.0-33.0); Mean Corpuscular Volume 90.5 fL (80-95); Mean Platelet Volume 8.8 fL (8.0-11.0); Monocytes % 8.1; Neutrophils % 68.9; Platelet Count 296 x1000/uL (130-400); RBC 4.54 m/cumm (4.50-6.00); RBC Distribution Width 14.5 % (11.8-14.1); White Blood Cell Count 9.59 k/cumm (4.4-10.8)
== END 2019-08-04 01:17 ==
PROVIDERS: PCP Family Medicine; Visit Provider Nurse Practitioner Family
DX: F20.9 Schizophrenia, unspecified (principal); Z79.899 Other long term (current) drug therapy
CPT/HCPCS: 36415; 85025

== ENCOUNTER 2019-09-08 02:31 | Outpatient (CLI) | payer MEDICARE, MEDICAID, SELFPAY ==
[2019-09-08 14:47] LABS: Abs Immature Grans 0.02 10^3/uL (0.0-0.06); Absolute Basophil Count 0.02 10^3/uL (0.0-0.2); Absolute Lymphocyte Count 2.28 10^3/uL (1.2-3.4); Absolute Neutrophil Count 5.36 10^3/uL (1.2-6.7); Basophils % 0.2; Eosinophils % 2.4; HCT 41.9 % (40.0-50.0); HGB 13.9 g/dL (13.5-17.5); Immature Grans % 0.2; Lymphocytes % 26.9; MCH 30.3 pg (27.0-33.0); MCHC 33.2 % (32.0-36.0); MCV 91.5 fL (80-95); MPV 8.9 fL (8.0-11.0); Monocytes % 7.1; Neutrophils % 63.2; Platelet Count 314 10^3/uL (130-400); RBC 4.58 10^6/uL (4.36-5.78); RDW 13.7 % (11.8-14.1); RDW-SD 46.3 fL; WBC 8.48 10^3/uL (4.4-10.8)
== END 2019-09-08 02:51 ==
PROVIDERS: PCP Family Medicine; Visit Provider Nurse Practitioner Family
DX: F20.9 Schizophrenia, unspecified (principal); Z79.899 Other long term (current) drug therapy
CPT/HCPCS: 36415; 85025

== ENCOUNTER 2019-10-21 02:09 | Outpatient (CLI) | payer MEDICARE, MEDICAID, SELFPAY ==
[2019-10-21 08:21] LABS: Abs Immature Grans 0.03 10^3/uL (0.0-0.06); Absolute Basophil Count 0.03 10^3/uL (0.0-0.2); Absolute Lymphocyte Count 3.07 10^3/uL (1.2-3.4); Absolute Monocyte Count 0.68 10^3/uL (0.1-0.8); Absolute Neutrophil Count 5.54 10^3/uL (1.2-6.7); Basophils % 0.3; Eosinophils % 1.1; HCT 44.5 % (40.0-50.0); HGB 14.4 g/dL (13.5-17.5); Immature Grans % 0.3; Lymphocytes % 32.5; MCH 30.3 pg (27.0-33.0); MCHC 32.4 % (32.0-36.0); MCV 93.5 fL (80-95); MPV 8.9 fL (8.0-11.0); Monocytes % 7.2; Neutrophils % 58.6; Nucleated RBC 0 %; Platelet Count 294 10^3/uL (130-400); RBC 4.76 10^6/uL (4.36-5.78); RDW 13.9 % (11.8-14.1); RDW-SD 47.8 fL; WBC 9.45 10^3/uL (4.4-10.8)
== END 2019-10-21 02:29 ==
PROVIDERS: PCP Family Medicine; Visit Provider Nurse Practitioner Family
DX: F20.9 Schizophrenia, unspecified (principal); Z79.899 Other long term (current) drug therapy
CPT/HCPCS: 36415; 85025

== ENCOUNTER 2019-11-19 01:35 | Outpatient (CLI) | payer MEDICARE, MEDICAID, SELFPAY ==
[2019-11-19 09:07] LABS: Abs Immature Grans 0.04 10^3/uL (0.0-0.06); Absolute Basophil Count 0.04 10^3/uL (0.0-0.2); Absolute Eosinophil Count 0.07 10^3/uL (0.0-0.7); Absolute Lymphocyte Count 2.74 10^3/uL (1.2-3.4); Absolute Monocyte Count 0.91 10^3/uL (0.1-0.8); Absolute Neutrophil Count 8.13 10^3/uL (1.2-6.7); Basophils % 0.3; Eosinophils % 0.6; HCT 42.8 % (40.0-50.0); HGB 13.8 g/dL (13.5-17.5); Immature Grans % 0.3; MCH 29.9 pg (27.0-33.0); MCHC 32.2 % (32.0-36.0); MCV 92.6 fL (80-95); MPV 8.8 fL (8.0-11.0); Monocytes % 7.6; Neutrophils % 68.2; Nucleated RBC 0 %; Platelet Count 329 10^3/uL (130-400); RBC 4.62 10^6/uL (4.36-5.78); RDW 13.8 % (11.8-14.1); RDW-SD 47.4 fL; WBC 11.92 10^3/uL (4.4-10.8)
== END 2019-11-19 01:55 ==
PROVIDERS: PCP Nurse Practitioner; Visit Provider Nurse Practitioner Family
DX: F20.9 Schizophrenia, unspecified (principal); Z79.899 Other long term (current) drug therapy
CPT/HCPCS: 36415; 85025

== ENCOUNTER 2019-11-26 02:26 | Outpatient (CLI) | payer MEDICARE, MEDICAID, SELFPAY ==
[2019-11-26 08:59] LABS: Abs Immature Grans 0.02 10^3/uL (0.0-0.06); Absolute Basophil Count 0.03 10^3/uL (0.0-0.2); Absolute Eosinophil Count 0.07 10^3/uL (0.0-0.7); Absolute Lymphocyte Count 2.81 10^3/uL (1.2-3.4); Absolute Monocyte Count 0.53 10^3/uL (0.1-0.8); Absolute Neutrophil Count 3.97 10^3/uL (1.2-6.7); Basophils % 0.4; Eosinophils % 0.9; HCT 43.4 % (40.0-50.0); Immature Grans % 0.3; Lymphocytes % 37.8; MCH 29.9 pg (27.0-33.0); MCHC 32.3 % (32.0-36.0); MCV 92.5 fL (80-95); MPV 8.9 fL (8.0-11.0); Monocytes % 7.1; Neutrophils % 53.5; Nucleated RBC 0 %; Platelet Count 305 10^3/uL (130-400); RBC 4.69 10^6/uL (4.36-5.78); RDW 13.4 % (11.8-14.1); RDW-SD 45.6 fL; WBC 7.43 10^3/uL (4.4-10.8)
== END 2019-11-26 02:46 ==
PROVIDERS: PCP Nurse Practitioner; Visit Provider Nurse Practitioner Family
DX: D72.829 Elevated white blood cell count, unspecified (principal)
CPT/HCPCS: 36415; 85048; 85025

== ENCOUNTER 2019-12-17 01:08 | Outpatient (CLI) | payer MEDICARE, MEDICAID, SELFPAY ==
[2019-12-17 09:30] LABS: Abs Immature Grans 0.04 10^3/uL (0.0-0.06); Absolute Basophil Count 0.04 10^3/uL (0.0-0.2); Absolute Eosinophil Count 0.07 10^3/uL (0.0-0.7); Absolute Lymphocyte Count 2.67 10^3/uL (1.2-3.4); Absolute Monocyte Count 0.68 10^3/uL (0.1-0.8); Absolute Neutrophil Count 4.64 10^3/uL (1.2-6.7); Basophils % 0.5; Eosinophils % 0.9; HCT 44.3 % (40.0-50.0); HGB 13.8 g/dL (13.5-17.5); Immature Grans % 0.5; Lymphocytes % 32.8; MCHC 31.2 % (32.0-36.0); MCV 93.1 fL (80-95); Monocytes % 8.4; Neutrophils % 56.9; Nucleated RBC 0 %; Platelet Count 295 10^3/uL (130-400); RBC 4.76 10^6/uL (4.36-5.78); RDW 13.7 % (11.8-14.1); RDW-SD 46.6 fL; WBC 8.14 10^3/uL (4.4-10.8)
== END 2019-12-17 01:28 ==
PROVIDERS: Nurse Practitioner Family; PCP Nurse Practitioner; Visit Provider Nurse Practitioner
DX: F90.0 Attention-deficit hyperactivity disorder, predominantly inattentive type (principal); Z79.899 Other long term (current) drug therapy
CPT/HCPCS: 36415; 85025

== ENCOUNTER 2020-01-19 04:22 | Outpatient (CLI) | payer MEDICARE, MEDICAID, SELFPAY ==
[2020-01-19 10:25] LABS: Abs Immature Grans 0.05 10^3/uL (0.0-0.06); Absolute Eosinophil Count 0.07 10^3/uL (0.0-0.7); Basophils % 0.3; Eosinophils % 0.6; HCT 44.2 % (40.0-50.0); HGB 14.4 g/dL (13.5-17.5); Immature Grans % 0.4; Lymphocytes % 22.7; MCH 29.9 pg (27.0-33.0); MCHC 32.6 % (32.0-36.0); MCV 91.7 fL (80-95); MPV 8.9 fL (8.0-11.0); Monocytes % 6.3; Neutrophils % 69.7; Nucleated RBC 0 %; Platelet Count 312 10^3/uL (130-400); RBC 4.82 10^6/uL (4.36-5.78); RDW 13.5 % (11.8-14.1); WBC 11.83 10^3/uL (4.4-10.8)
[2020-01-19 10:28] LABS: Absolute Basophil Count 0.04 10^3/uL (0.0-0.2); Absolute Lymphocyte Count 2.69 10^3/uL (1.2-3.4); Absolute Monocyte Count 0.75 10^3/uL (0.1-0.8); Absolute Neutrophil Count 8.25 10^3/uL (1.2-6.7)
== END 2020-01-19 04:42 ==
PROVIDERS: PCP Nurse Practitioner; Visit Provider Nurse Practitioner Family
DX: F20.9 Schizophrenia, unspecified (principal); Z79.899 Other long term (current) drug therapy
CPT/HCPCS: 36415; 85025

== ENCOUNTER 2020-02-09 03:11 | Outpatient (CLI) | payer MEDICARE, MEDICAID, SELFPAY ==
[2020-02-09 10:10] LABS: Abs Immature Grans 0.05 10^3/uL (0.0-0.06); Absolute Basophil Count 0.02 10^3/uL (0.0-0.2); Absolute Eosinophil Count 0.06 10^3/uL (0.0-0.7); Absolute Lymphocyte Count 2.45 10^3/uL (1.2-3.4); Absolute Monocyte Count 0.59 10^3/uL (0.1-0.8); Absolute Neutrophil Count 4.56 10^3/uL (1.2-6.7); Basophils % 0.3; Eosinophils % 0.8; HGB 14.3 g/dL (13.5-17.5); Immature Grans % 0.6; Lymphocytes % 31.7; MCH 29.9 pg (27.0-33.0); MCHC 32.5 % (32.0-36.0); MCV 91.9 fL (80-95); MPV 8.7 fL (8.0-11.0); Monocytes % 7.6; Nucleated RBC 0 %; Platelet Count 316 10^3/uL (130-400); RBC 4.79 10^6/uL (4.36-5.78); RDW 13.7 % (11.8-14.1); RDW-SD 46.8 fL; WBC 7.73 10^3/uL (4.4-10.8)
== END 2020-02-09 03:31 ==
PROVIDERS: Nurse Practitioner Family; PCP Nurse Practitioner; Visit Provider Nurse Practitioner
DX: F90.0 Attention-deficit hyperactivity disorder, predominantly inattentive type (principal); Z79.899 Other long term (current) drug therapy
CPT/HCPCS: 36415; 85025

== ENCOUNTER 2020-03-09 03:26 | Outpatient (CLI) | payer MEDICARE, MEDICAID, SELFPAY ==
[2020-03-09 12:18] LABS: Abs Immature Grans 0.05 10^3/uL (0.0-0.06); Absolute Basophil Count 0.04 10^3/uL (0.0-0.2); Absolute Eosinophil Count 0.04 10^3/uL (0.0-0.7); Absolute Lymphocyte Count 2.48 10^3/uL (1.2-3.4); Absolute Monocyte Count 0.68 10^3/uL (0.1-0.8); Absolute Neutrophil Count 6.73 10^3/uL (1.2-6.7); Basophils % 0.4; Eosinophils % 0.4; HCT 44.2 % (40.0-50.0); HGB 14.3 g/dL (13.5-17.5); Immature Grans % 0.5; Lymphocytes % 24.8; MCH 29.5 pg (27.0-33.0); MCHC 32.4 % (32.0-36.0); MCV 91.1 fL (80-95); MPV 8.7 fL (8.0-11.0); Monocytes % 6.8; Neutrophils % 67.1; Nucleated RBC 0 %; Platelet Count 292 10^3/uL (130-400); RBC 4.85 10^6/uL (4.36-5.78); RDW 13.9 % (11.8-14.1); RDW-SD 46.8 fL; WBC 10.02 10^3/uL (4.4-10.8)
== END 2020-03-09 03:46 ==
PROVIDERS: Psychiatry & Neurology Psychiatry; PCP Nurse Practitioner; Visit Provider Nurse Practitioner
DX: F25.0 Schizoaffective disorder, bipolar type (principal); Z79.899 Other long term (current) drug therapy
CPT/HCPCS: 36415; 85025

== ENCOUNTER 2020-04-12 13:27 | Outpatient (CLI) | payer MEDICARE, MEDICAID, SELFPAY ==
[2020-04-12 09:13] LABS: Abs Immature Grans 0.04 10^3/uL (0.0-0.06); Absolute Basophil Count 0.03 10^3/uL (0.0-0.2); Absolute Eosinophil Count 0.04 10^3/uL (0.0-0.7); Absolute Lymphocyte Count 2.46 10^3/uL (1.2-3.4); Absolute Monocyte Count 0.61 10^3/uL (0.1-0.8); Absolute Neutrophil Count 5.11 10^3/uL (1.2-6.7); Basophils % 0.4; Eosinophils % 0.5; HCT 45.1 % (40.0-50.0); HGB 14.6 g/dL (13.5-17.5); Immature Grans % 0.5; Lymphocytes % 29.7; MCH 29.8 pg (27.0-33.0); MCHC 32.4 % (32.0-36.0); MPV 8.7 fL (8.0-11.0); Monocytes % 7.4; Neutrophils % 61.5; Nucleated RBC 0 %; Platelet Count 299 10^3/uL (130-400); RDW 13.7 % (11.8-14.1); RDW-SD 46.7 fL; WBC 8.29 10^3/uL (4.4-10.8)
[2020-04-12 09:32] LABS: Hemoglobin A1C 5.5 % (<5.7)
[2020-04-12 10:10] LABS: ALT 34 U/L (16-63); AST 19 U/L (15-37); Albumin 4.2 g/dL (3.4-5.0); Alkaline Phosphatase 110 U/L (46-116); Anion Gap 8.3 mmol/L (3-11); BUN 18 mg/dL (7-18); Bilirubin, Total 0.5 mg/dL (0.2-1.0); CO2 27.7 mmol/L (21.0-32.0); CREATININE 1.1 mg/dL (0.70-1.30); Calcium 8.7 mg/dL (8.5-10.1); Calculated LDL 158 mg/dL (<100); Chloride 103 mmol/L (98-107); Cholesterol 263 mg/dL (<200); Glucose 106 mg/dL (74-106); HDL Cholesterol 60 mg/dL (40-60); Magnesium 2.1 mg/dL (1.8-2.4); Potassium 4.1 mmol/L (3.5-5.1); Sodium 139 mmol/L (136-145); TSH 1.65 uIU/mL (0.36-3.74); Total Protein 7.2 g/dL (6.4-8.2); Triglyceride 227 mg/dL (<150); Vitamin B12 891 pg/mL (193-986)
[2020-04-12 10:12] LABS: Folate > 20.0 ng/mL (8.6-20.0)
[2020-04-12 10:28] LABS: Bilirubin, Direct 0.11 mg/dL (0.00-0.20); FREE T4 0.96 ng/dL (0.76-1.46)
[2020-04-12 16:25] LABS: T3,Free 3.8 pg/mL (2.8-5.3)
[2020-04-15 15:01] LABS: 25-Hydroxy D Total 12 ng/mL; 25-Hydroxy D2 <4.0 ng/mL; 25-Hydroxy D3 12 ng/mL
== END 2020-04-12 13:28 | disposition home or self-care (01) ==
LOC: LBO 04-15 13:28
PROVIDERS: PCP Nurse Practitioner; Visit Provider Psychiatry & Neurology Psychiatry
DX: F25.0 Schizoaffective disorder, bipolar type (principal); Z79.899 Other long term (current) drug therapy
CPT/HCPCS: 36415; 80053; 80061; 80076; 82306; 82607; 82746; 83036; 83735; 84439; 84443; 84481; 85025; 86140

== ENCOUNTER 2020-05-06 02:26 | Outpatient (CLI) | payer MEDICARE, MEDICAID, SELFPAY ==
[2020-05-06 14:05] LABS: Hemoglobin A1C 5.7 % (<5.7)
[2020-05-06 14:57] LABS: ALT 35 U/L (16-63); AST 18 U/L (15-37); Alkaline Phosphatase 110 U/L (46-116); BUN 16 mg/dL (7-18); Bilirubin, Total 0.4 mg/dL (0.2-1.0); CREATININE 1.1 mg/dL (0.70-1.30); Calcium 8.4 mg/dL (8.5-10.1); Calculated LDL 135 mg/dL (<100); Chloride 105 mmol/L (98-107); Cholesterol 232 mg/dL (<200); Glucose 127 mg/dL (74-106); HDL Cholesterol 54 mg/dL (40-60); Potassium 3.7 mmol/L (3.5-5.1); Sodium 141 mmol/L (136-145); TSH 0.73 uIU/mL (0.36-3.74); Triglyceride 219 mg/dL (<150); Vitamin B12 1003 pg/mL (193-986)
[2020-05-06 14:58] LABS: Folate > 20.0 ng/mL (8.6-20.0)
[2020-05-06 15:14] LABS: Bilirubin, Direct 0.1 mg/dL (0.0-0.2); C-Reactive Protein 0.21 mg/dL (0.0-0.3); FREE T4 0.99 ng/dL (0.76-1.46)
[2020-05-06 20:56] LABS: T3,Free 3.5 pg/mL (2.8-5.3)
[2020-05-10 12:15] LABS: 25-Hydroxy D Total 11 ng/mL; 25-Hydroxy D2 <4.0 ng/mL; 25-Hydroxy D3 11 ng/mL
== END 2020-05-06 02:27 | disposition home or self-care (01) ==
PROVIDERS: Nurse Practitioner Family; PCP Nurse Practitioner; Visit Provider Psychiatry & Neurology Psychiatry
DX: F20.9 Schizophrenia, unspecified (principal); Z79.899 Other long term (current) drug therapy
CPT/HCPCS: 36415; 80053; 80061; 80069; 80076; 82306; 82607; 82746; 83036; 83735; 84439; 84443; 84481; 86140

== ENCOUNTER 2020-05-09 09:41 | Outpatient (CLI) | payer MEDICARE, MEDICAID, SELFPAY ==
[2020-05-09 11:16] LABS: Abs Immature Grans 0.03 10^3/uL (0.0-0.06); Absolute Basophil Count 0.03 10^3/uL (0.0-0.2); Absolute Eosinophil Count 0.06 10^3/uL (0.0-0.7); Absolute Lymphocyte Count 2.83 10^3/uL (1.2-3.4); Absolute Monocyte Count 0.66 10^3/uL (0.1-0.8); Basophils % 0.3; Eosinophils % 0.7; HCT 45.3 % (40.0-50.0); HGB 14.6 g/dL (13.5-17.5); Immature Grans % 0.3; Lymphocytes % 30.7; MCH 29.9 pg (27.0-33.0); MCHC 32.2 % (32.0-36.0); MCV 92.6 fL (80-95); MPV 9.1 fL (8.0-11.0); Monocytes % 7.2; Neutrophils % 60.8; Nucleated RBC 0 %; Platelet Count 286 10^3/uL (130-400); RBC 4.89 10^6/uL (4.36-5.78); RDW 13.7 % (11.8-14.1); WBC 9.21 10^3/uL (4.4-10.8)
== END 2020-05-09 09:42 | disposition home or self-care (01) ==
LOC: LBO 09:45
PROVIDERS: PCP Nurse Practitioner; Visit Provider Nurse Practitioner Family
DX: F90.0 Attention-deficit hyperactivity disorder, predominantly inattentive type (principal); Z79.899 Other long term (current) drug therapy
CPT/HCPCS: 85025

== ENCOUNTER 2020-05-20 18:59 | Outpatient (CLI) | payer MEDICARE, MEDICAID, SELFPAY ==
--- NOTE | 2020-05-20 | DI.RAD_ITS ---
EXAM: XR SACROILIAC JOINTS CLINICAL HISTORY: Rt Leg pain, ICD-M79.604. TECHNIQUE: 2D digital imaging was performed. COMPARISON: CR ABD FLAT UPRIGHT PA CHEST from 03/11/2012 FINDINGS: BONES: No acute fracture is present. No bony destructive lesion is seen. JOINTS: No dislocation present. Mild degenerative changes are seen at the sacroiliac joints bilateral ly. There is no ankylosis. SOFT TISSUE: Vascular calcifications are present. IMPRESSION: Mild degenerative changes seen at the sacroiliac joints. DATA REPOSITORY: RADIATION DOSE DELIVERED:
== END 2020-05-20 19:19 ==
PROVIDERS: PCP Nurse Practitioner; Visit Provider Physician Assistant Medical
DX: M46.1 Sacroiliitis, not elsewhere classified (principal)
CPT/HCPCS: 72202

== ENCOUNTER 2020-06-03 03:00 | Outpatient (CLI) | payer MEDICARE, MEDICAID, SELFPAY ==
[2020-06-03 09:57] LABS: Abs Immature Grans 0.04 10^3/uL (0.0-0.06); Absolute Basophil Count 0.02 10^3/uL (0.0-0.2); Absolute Eosinophil Count 0.09 10^3/uL (0.0-0.7); Absolute Lymphocyte Count 2.32 10^3/uL (1.2-3.4); Absolute Monocyte Count 0.64 10^3/uL (0.1-0.8); Basophils % 0.2; Eosinophils % 1.1; HCT 42.8 % (40.0-50.0); HGB 13.7 g/dL (13.5-17.5); Immature Grans % 0.5; Lymphocytes % 27.9; MCH 29.7 pg (27.0-33.0); MCV 92.8 fL (80-95); MPV 8.6 fL (8.0-11.0); Monocytes % 7.7; Neutrophils % 62.6; Nucleated RBC 0 %; Platelet Count 267 10^3/uL (130-400); RBC 4.61 10^6/uL (4.36-5.78); RDW 13.5 % (11.8-14.1); RDW-SD 46.5 fL; WBC 8.31 10^3/uL (4.4-10.8)
== END 2020-06-03 03:01 | disposition home or self-care (01) ==
LOC: LBO 03:00
PROVIDERS: PCP Nurse Practitioner; Visit Provider Psychiatry & Neurology Psychiatry
DX: F90.0 Attention-deficit hyperactivity disorder, predominantly inattentive type (principal); Z79.899 Other long term (current) drug therapy
CPT/HCPCS: 36415; 85025

== ENCOUNTER 2020-07-01 03:10 | Outpatient (CLI) | payer MEDICARE, MEDICAID, SELFPAY ==
[2020-07-01 12:28] LABS: Abs Immature Grans 0.04 10^3/uL (0.0-0.06); Absolute Basophil Count 0.03 10^3/uL (0.0-0.2); Absolute Eosinophil Count 0.08 10^3/uL (0.0-0.7); Absolute Neutrophil Count 5.29 10^3/uL (1.2-6.7); Basophils % 0.3; Eosinophils % 0.9; HCT 40.9 % (40.0-50.0); HGB 13.4 g/dL (13.5-17.5); Immature Grans % 0.4; Lymphocytes % 31.7; MCH 29.9 pg (27.0-33.0); MCHC 32.8 % (32.0-36.0); MCV 91.3 fL (80-95); MPV 8.9 fL (8.0-11.0); Monocytes % 8.8; Neutrophils % 57.9; Nucleated RBC 0 %; Platelet Count 282 10^3/uL (130-400); RBC 4.48 10^6/uL (4.36-5.78); RDW 13.9 % (11.8-14.1); RDW-SD 46.6 fL; WBC 9.14 10^3/uL (4.4-10.8)
== END 2020-07-01 03:11 | disposition home or self-care (01) ==
LOC: LBO 03:10
PROVIDERS: Nurse Practitioner Family; PCP Nurse Practitioner; Visit Provider Psychiatry & Neurology Psychiatry
DX: F20.9 Schizophrenia, unspecified (principal); Z79.899 Other long term (current) drug therapy
CPT/HCPCS: 36415; 85025

== ENCOUNTER 2020-07-29 03:09 | Outpatient (CLI) | payer MEDICARE, MEDICAID, SELFPAY ==
[2020-07-29 11:04] LABS: Abs Immature Grans 0.02 10^3/uL (0.0-0.06); Absolute Basophil Count 0.02 10^3/uL (0.0-0.2); Absolute Eosinophil Count 0.04 10^3/uL (0.0-0.7); Absolute Lymphocyte Count 1.87 10^3/uL (1.2-3.4); Absolute Monocyte Count 0.51 10^3/uL (0.1-0.8); Absolute Neutrophil Count 4.79 10^3/uL (1.2-6.7); Basophils % 0.3; Eosinophils % 0.6; HCT 40.8 % (40.0-50.0); HGB 13.4 g/dL (13.5-17.5); Immature Grans % 0.3; Lymphocytes % 25.8; MCH 30.1 pg (27.0-33.0); MCHC 32.8 % (32.0-36.0); MCV 91.7 fL (80-95); Nucleated RBC 0 %; Platelet Count 291 10^3/uL (130-400); RBC 4.45 10^6/uL (4.36-5.78); RDW 13.7 % (11.8-14.1); RDW-SD 46.4 fL; WBC 7.25 10^3/uL (4.4-10.8)
== END 2020-07-29 03:10 | disposition home or self-care (01) ==
LOC: LBO 03:09
PROVIDERS: PCP Nurse Practitioner; Visit Provider Psychiatry & Neurology Psychiatry
DX: F25.0 Schizoaffective disorder, bipolar type; Z79.899 Other long term (current) drug therapy
CPT/HCPCS: 36415; 85025

== ENCOUNTER 2020-08-29 21:46 | Outpatient (CLI) | payer MEDICARE, MEDICAID, SELFPAY ==
[2020-08-29 15:18] LABS: Abs Immature Grans 0.03 10^3/uL (0.0-0.06); Absolute Basophil Count 0.03 10^3/uL (0.0-0.2); Absolute Eosinophil Count 0.04 10^3/uL (0.0-0.7); Absolute Lymphocyte Count 2.33 10^3/uL (1.2-3.4); Absolute Monocyte Count 0.62 10^3/uL (0.1-0.8); Basophils % 0.3; Eosinophils % 0.4; HCT 41.4 % (40.0-50.0); HGB 13.6 g/dL (13.5-17.5); Immature Grans % 0.3; Lymphocytes % 24.7; MCH 30.3 pg (27.0-33.0); MCHC 32.9 % (32.0-36.0); MCV 92.2 fL (80-95); MPV 9.1 fL (8.0-11.0); Monocytes % 6.6; Neutrophils % 67.7; Nucleated RBC 0 %; Platelet Count 281 10^3/uL (130-400); RBC 4.49 10^6/uL (4.36-5.78); RDW 13.5 % (11.8-14.1); RDW-SD 46.7 fL; WBC 9.45 10^3/uL (4.4-10.8)
== END 2020-08-29 21:47 | disposition home or self-care (01) ==
LOC: LBO 21:48
PROVIDERS: PCP Nurse Practitioner; Visit Provider Psychiatry & Neurology Psychiatry
DX: F25.0 Schizoaffective disorder, bipolar type (principal); Z79.899 Other long term (current) drug therapy
CPT/HCPCS: 36415; 85025

== ENCOUNTER 2020-09-23 02:47 | Outpatient (CLI) | payer MEDICARE, MEDICAID, SELFPAY ==
[2020-09-23 10:12] LABS: Abs Immature Grans 0.02 10^3/uL (0.0-0.06); Absolute Basophil Count 0.02 10^3/uL (0.0-0.2); Absolute Eosinophil Count 0.06 10^3/uL (0.0-0.7); Absolute Lymphocyte Count 2.24 10^3/uL (1.2-3.4); Absolute Monocyte Count 0.56 10^3/uL (0.1-0.8); Absolute Neutrophil Count 5.83 10^3/uL (1.2-6.7); Basophils % 0.2; Eosinophils % 0.7; HCT 41.7 % (40.0-50.0); HGB 13.4 g/dL (13.5-17.5); Immature Grans % 0.2; Lymphocytes % 25.7; MCH 29.7 pg (27.0-33.0); MCHC 32.1 % (32.0-36.0); MCV 92.5 fL (80-95); MPV 8.8 fL (8.0-11.0); Monocytes % 6.4; Neutrophils % 66.8; Nucleated RBC 0 %; Platelet Count 259 10^3/uL (130-400); RBC 4.51 10^6/uL (4.36-5.78); RDW 13.3 % (11.8-14.1); RDW-SD 45.1 fL; WBC 8.73 10^3/uL (4.4-10.8)
[2020-09-23 12:22] LABS: ALT 38 U/L (16-63); AST 22 U/L (15-37); Alkaline Phosphatase 109 U/L (46-116); BUN 15 mg/dL (7-18); Bilirubin, Direct 0.1 mg/dL (0.0-0.2); Bilirubin, Total 0.5 mg/dL (0.2-1.0); CREATININE 1.2 mg/dL (0.70-1.30); Calcium 8.5 mg/dL (8.5-10.1); Chloride 106 mmol/L (98-107); Glucose 129 mg/dL (74-106); Potassium 4.2 mmol/L (3.5-5.1); Sodium 140 mmol/L (136-145); Total Protein 6.6 g/dL (6.4-8.2)
[2020-09-23 12:55] LABS: Calculated LDL 55 mg/dL (<100); Cholesterol 126 mg/dL (<200); HDL Cholesterol 59 mg/dL (40-60); Triglyceride 62 mg/dL (<150)
== END 2020-09-23 02:48 | disposition home or self-care (01) ==
LOC: LBO 02:47
PROVIDERS: PCP Nurse Practitioner; Visit Provider Psychiatry & Neurology Psychiatry
DX: F25.0 Schizoaffective disorder, bipolar type (principal); Z79.899 Other long term (current) drug therapy
CPT/HCPCS: 36415; 80053; 80061; 80076; 84443; 85025

== ENCOUNTER 2020-10-20 03:09 | Outpatient (CLI) | payer MEDICARE, MEDICAID, SELFPAY ==
[2020-10-20 10:58] LABS: Abs Immature Grans 0.04 10^3/uL (0.0-0.06); Absolute Basophil Count 0.03 10^3/uL (0.0-0.2); Absolute Eosinophil Count 0.03 10^3/uL (0.0-0.7); Absolute Lymphocyte Count 2.62 10^3/uL (1.2-3.4); Absolute Monocyte Count 0.67 10^3/uL (0.1-0.8); Basophils % 0.3; Eosinophils % 0.3; HCT 43.4 % (40.0-50.0); HGB 13.9 g/dL (13.5-17.5); Immature Grans % 0.4; Lymphocytes % 25.5; MCH 30.1 pg (27.0-33.0); MCV 93.9 fL (80-95); Monocytes % 6.5; Nucleated RBC 0 %; Platelet Count 274 10^3/uL (130-400); RBC 4.62 10^6/uL (4.36-5.78); RDW 13.7 % (11.8-14.1); RDW-SD 46.7 fL; WBC 10.29 10^3/uL (4.4-10.8)
== END 2020-10-20 03:10 | disposition home or self-care (01) ==
LOC: LBO 03:09
PROVIDERS: PCP Nurse Practitioner; Visit Provider Psychiatry & Neurology Psychiatry
DX: F25.0 Schizoaffective disorder, bipolar type (principal); Z79.899 Other long term (current) drug therapy
CPT/HCPCS: 36415; 85025

== ENCOUNTER 2020-11-15 03:47 | Outpatient (CLI) | payer MEDICARE, MEDICAID, SELFPAY ==
[2020-11-15 11:50] LABS: Abs Immature Grans 0.03 10^3/uL (0.0-0.06); Absolute Basophil Count 0.02 10^3/uL (0.0-0.2); Absolute Eosinophil Count 0.04 10^3/uL (0.0-0.7); Absolute Lymphocyte Count 2.52 10^3/uL (1.2-3.4); Absolute Monocyte Count 0.72 10^3/uL (0.1-0.8); Basophils % 0.2; Eosinophils % 0.4; HCT 42.7 % (40.0-50.0); HGB 13.6 g/dL (13.5-17.5); Immature Grans % 0.3; Lymphocytes % 25.9; MCH 29.3 pg (27.0-33.0); MCHC 31.9 % (32.0-36.0); MPV 8.9 fL (8.0-11.0); Monocytes % 7.4; Neutrophils % 65.8; Nucleated RBC 0 %; Platelet Count 275 10^3/uL (130-400); RBC 4.64 10^6/uL (4.36-5.78); RDW 13.3 % (11.8-14.1); RDW-SD 45.2 fL; WBC 9.73 10^3/uL (4.4-10.8)
== END 2020-11-15 03:48 | disposition home or self-care (01) ==
LOC: LBO 03:47
PROVIDERS: PCP Nurse Practitioner; Visit Provider Psychiatry & Neurology Psychiatry
DX: F25.0 Schizoaffective disorder, bipolar type (principal); Z79.899 Other long term (current) drug therapy
CPT/HCPCS: 36415; 85025

== ENCOUNTER 2020-12-15 02:58 | Outpatient (CLI) | payer MEDICARE, MEDICAID, SELFPAY ==
[2020-12-15 11:51] LABS: Abs Immature Grans 0.03 10^3/uL (0.0-0.06); Absolute Basophil Count 0.02 10^3/uL (0.0-0.2); Absolute Eosinophil Count 0.01 10^3/uL (0.0-0.7); Absolute Lymphocyte Count 2.25 10^3/uL (1.2-3.4); Absolute Monocyte Count 0.69 10^3/uL (0.1-0.8); Absolute Neutrophil Count 5.77 10^3/uL (1.2-6.7); Basophils % 0.2; Eosinophils % 0.1; HCT 43.6 % (40.0-50.0); HGB 13.8 g/dL (13.5-17.5); Immature Grans % 0.3; Lymphocytes % 25.7; MCH 29.6 pg (27.0-33.0); MCHC 31.7 % (32.0-36.0); MCV 93.4 fL (80-95); MPV 8.5 fL (8.0-11.0); Monocytes % 7.9; Neutrophils % 65.8; Nucleated RBC 0 %; Platelet Count 256 10^3/uL (130-400); RBC 4.67 10^6/uL (4.36-5.78); RDW 13.8 % (11.8-14.1); RDW-SD 46.5 fL; WBC 8.77 10^3/uL (4.4-10.8)
== END 2020-12-15 02:59 | disposition home or self-care (01) ==
LOC: LBO 02:58
PROVIDERS: PCP Nurse Practitioner; Visit Provider Psychiatry & Neurology Psychiatry
DX: Z79.899 Other long term (current) drug therapy (principal); F25.0 Schizoaffective disorder, bipolar type
CPT/HCPCS: 36415; 85025

== ENCOUNTER 2021-01-16 03:19 | Outpatient (CLI) | payer MEDICARE, MEDICAID, SELFPAY ==
[2021-01-16 13:27] LABS: Abs Immature Grans 0.04 10^3/uL (0.0-0.06); Absolute Basophil Count 0.03 10^3/uL (0.0-0.2); Absolute Eosinophil Count 0.03 10^3/uL (0.0-0.7); Absolute Lymphocyte Count 2.06 10^3/uL (1.2-3.4); Absolute Monocyte Count 0.62 10^3/uL (0.1-0.8); Absolute Neutrophil Count 7.23 10^3/uL (1.2-6.7); Basophils % 0.3; Eosinophils % 0.3; HCT 43.2 % (40.0-50.0); Immature Grans % 0.4; Lymphocytes % 20.6; MCH 30.1 pg (27.0-33.0); MCHC 32.4 % (32.0-36.0); MCV 92.9 fL (80-95); MPV 8.9 fL (8.0-11.0); Monocytes % 6.2; Neutrophils % 72.2; Nucleated RBC 0 %; Platelet Count 266 10^3/uL (130-400); RBC 4.65 10^6/uL (4.36-5.78); RDW 13.7 % (11.8-14.1); RDW-SD 46.3 fL; WBC 10.01 10^3/uL (4.4-10.8)
== END 2021-01-16 03:20 | disposition home or self-care (01) ==
LOC: LBO 03:19
PROVIDERS: PCP Nurse Practitioner; Visit Provider Psychiatry & Neurology Psychiatry
DX: F25.0 Schizoaffective disorder, bipolar type (principal)
CPT/HCPCS: 36415; 85025

== ENCOUNTER 2021-02-08 02:34 | Outpatient (CLI) | payer MEDICARE, MEDICAID, SELFPAY ==
[2021-02-08 11:34] LABS: Abs Immature Grans 0.04 10^3/uL (0.0-0.06); Absolute Basophil Count 0.03 10^3/uL (0.0-0.2); Absolute Eosinophil Count 0.03 10^3/uL (0.0-0.7); Absolute Lymphocyte Count 2.05 10^3/uL (1.2-3.4); Absolute Monocyte Count 0.66 10^3/uL (0.1-0.8); Absolute Neutrophil Count 5.33 10^3/uL (1.2-6.7); Basophils % 0.4; Eosinophils % 0.4; HCT 43.4 % (40.0-50.0); HGB 13.7 g/dL (13.5-17.5); Immature Grans % 0.5; Lymphocytes % 25.2; MCH 29.8 pg (27.0-33.0); MCHC 31.6 % (32.0-36.0); MCV 94.3 fL (80-95); Monocytes % 8.1; Neutrophils % 65.4; Nucleated RBC 0 %; Platelet Count 275 10^3/uL (130-400); RDW 13.3 % (11.8-14.1); RDW-SD 46.3 fL; WBC 8.14 10^3/uL (4.4-10.8)
== END 2021-02-08 02:35 | disposition home or self-care (01) ==
LOC: LBO 02:34
PROVIDERS: PCP Nurse Practitioner; Visit Provider Psychiatry & Neurology Psychiatry
DX: F25.0 Schizoaffective disorder, bipolar type (principal)
CPT/HCPCS: 36415; 85025

== ENCOUNTER 2021-03-10 04:28 | Outpatient (CLI) | payer MEDICARE, MEDICAID, SELFPAY ==
[2021-03-10 11:51] LABS: Abs Immature Grans 0.02 10^3/uL (0.0-0.06); Absolute Basophil Count 0.02 10^3/uL (0.0-0.2); Absolute Eosinophil Count 0.02 10^3/uL (0.0-0.7); Absolute Monocyte Count 0.59 10^3/uL (0.1-0.8); Absolute Neutrophil Count 5.93 10^3/uL (1.2-6.7); Basophils % 0.2; Eosinophils % 0.2; HCT 43.1 % (40.0-50.0); HGB 13.9 g/dL (13.5-17.5); Immature Grans % 0.2; Lymphocytes % 24.2; MCH 30.1 pg (27.0-33.0); MCHC 32.3 % (32.0-36.0); MCV 93.3 fL (80-95); MPV 8.8 fL (8.0-11.0); Monocytes % 6.8; Neutrophils % 68.4; Nucleated RBC 0 %; Platelet Count 284 10^3/uL (130-400); RBC 4.62 10^6/uL (4.36-5.78); RDW 13.3 % (11.8-14.1); RDW-SD 45.5 fL; WBC 8.68 10^3/uL (4.4-10.8)
== END 2021-03-10 04:29 | disposition home or self-care (01) ==
LOC: LBO 04:28
PROVIDERS: PCP Nurse Practitioner; Visit Provider Psychiatry & Neurology Psychiatry
DX: F25.0 Schizoaffective disorder, bipolar type (principal); Z79.899 Other long term (current) drug therapy
CPT/HCPCS: 36415; 85025

== ENCOUNTER 2021-04-07 04:02 | Outpatient (CLI) | payer MEDICARE, MEDICAID, SELFPAY ==
[2021-04-07 12:33] LABS: Abs Immature Grans 0.03 10^3/uL (0.0-0.06); Absolute Basophil Count 0.02 10^3/uL (0.0-0.2); Absolute Eosinophil Count 0.03 10^3/uL (0.0-0.7); Absolute Lymphocyte Count 1.84 10^3/uL (1.2-3.4); Absolute Neutrophil Count 5.82 10^3/uL (1.2-6.7); Basophils % 0.2; Eosinophils % 0.4; HCT 46.4 % (40.0-50.0); HGB 14.8 g/dL (13.5-17.5); Immature Grans % 0.4; Lymphocytes % 21.8; MCH 29.2 pg (27.0-33.0); MCHC 31.9 % (32.0-36.0); MCV 91.7 fL (80-95); MPV 9.1 fL (8.0-11.0); Monocytes % 8.3; Neutrophils % 68.9; Nucleated RBC 0 %; Platelet Count 254 10^3/uL (130-400); RBC 5.06 10^6/uL (4.36-5.78); RDW 13.4 % (11.8-14.1); RDW-SD 45.2 fL; WBC 8.44 10^3/uL (4.4-10.8)
== END 2021-04-07 04:03 | disposition home or self-care (01) ==
LOC: LBO 04:02
PROVIDERS: PCP Nurse Practitioner; Visit Provider Psychiatry & Neurology Psychiatry
DX: Z79.899 Other long term (current) drug therapy (principal); F25.0 Schizoaffective disorder, bipolar type
CPT/HCPCS: 36415; 85025

== ENCOUNTER 2021-05-09 02:48 | Outpatient (CLI) | payer MEDICARE, MEDICAID, SELFPAY ==
[2021-05-09 10:52] LABS: Abs Immature Grans 0.05 10^3/uL (0.0-0.06); Absolute Basophil Count 0.02 10^3/uL (0.0-0.2); Absolute Eosinophil Count 0.03 10^3/uL (0.0-0.7); Absolute Lymphocyte Count 1.93 10^3/uL (1.2-3.4); Absolute Monocyte Count 0.57 10^3/uL (0.1-0.8); Absolute Neutrophil Count 5.45 10^3/uL (1.2-6.7); Basophils % 0.2; Eosinophils % 0.4; HCT 43.8 % (40.0-50.0); HGB 13.7 g/dL (13.5-17.5); Immature Grans % 0.6; MCHC 31.3 % (32.0-36.0); MCV 92.6 fL (80-95); MPV 8.6 fL (8.0-11.0); Monocytes % 7.1; Neutrophils % 67.7; Nucleated RBC 0 %; Platelet Count 276 10^3/uL (130-400); RBC 4.73 10^6/uL (4.36-5.78); RDW 13.2 % (11.8-14.1); RDW-SD 44.7 fL; WBC 8.05 10^3/uL (4.4-10.8)
[2021-05-09 12:20] LABS: ALT 33 U/L (16-63); AST 21 U/L (15-37); Albumin 4.1 g/dL (3.4-5.0); Alkaline Phosphatase 148 U/L (46-116); Anion Gap 7.3 mmol/L (3-11); BUN 16 mg/dL (7-18); Bilirubin, Direct 0.2 mg/dL (0.0-0.2); Bilirubin, Total 0.6 mg/dL (0.2-1.0); CO2 28.7 mmol/L (21.0-32.0); Calcium 8.5 mg/dL (8.5-10.1); Chloride 104 mmol/L (98-107); Glucose 103 mg/dL (74-106); Potassium 4.5 mmol/L (3.5-5.1); Sodium 140 mmol/L (136-145); TSH 0.82 uIU/mL (0.36-3.74); Total Protein 6.9 g/dL (6.4-8.2)
[2021-05-09 12:34] LABS: Calculated LDL 48 mg/dL (<100); Cholesterol 121 mg/dL (<200); HDL Cholesterol 61 mg/dL (40-60); Triglyceride 64 mg/dL (<150)
== END 2021-05-09 02:49 | disposition home or self-care (01) ==
LOC: LBO 02:48
PROVIDERS: PCP Nurse Practitioner; Visit Provider Psychiatry & Neurology Psychiatry
DX: F25.0 Schizoaffective disorder, bipolar type (principal); Z79.899 Other long term (current) drug therapy
CPT/HCPCS: 36415; 80053; 80061; 80076; 84443; 85025

== ENCOUNTER 2021-06-02 02:05 | Outpatient (CLI) | payer MEDICARE, MEDICAID, SELFPAY ==
[2021-06-02 08:17] LABS: Abs Immature Grans 0.04 10^3/uL (0.0-0.06); Absolute Basophil Count 0.03 10^3/uL (0.0-0.2); Absolute Eosinophil Count 0.07 10^3/uL (0.0-0.7); Absolute Lymphocyte Count 2.38 10^3/uL (1.2-3.4); Absolute Monocyte Count 0.55 10^3/uL (0.1-0.8); Absolute Neutrophil Count 4.77 10^3/uL (1.2-6.7); Basophils % 0.4; Eosinophils % 0.9; HCT 43.5 % (40.0-50.0); HGB 13.7 g/dL (13.5-17.5); Immature Grans % 0.5; Lymphocytes % 30.4; MCHC 31.5 % (32.0-36.0); Neutrophils % 60.8; Platelet Count 258 10^3/uL (130-400); RBC 4.73 10^6/uL (4.36-5.78); RDW 13.7 % (11.8-14.1); RDW-SD 46.8 fL; WBC 7.84 10^3/uL (4.4-10.8)
== END 2021-06-02 02:06 | disposition home or self-care (01) ==
LOC: LBO 02:05
PROVIDERS: PCP Nurse Practitioner; Visit Provider Psychiatry & Neurology Psychiatry
DX: F25.0 Schizoaffective disorder, bipolar type (principal); Z79.899 Other long term (current) drug therapy
CPT/HCPCS: 36415; 85025

== ENCOUNTER 2021-06-29 03:51 | Outpatient (CLI) | payer MEDICARE, MEDICAID, SELFPAY ==
[2021-06-29 12:54] LABS: Abs Immature Grans 0.02 10^3/uL (0.0-0.06); Absolute Basophil Count 0.03 10^3/uL (0.0-0.2); Absolute Eosinophil Count 0.02 10^3/uL (0.0-0.7); Absolute Neutrophil Count 5.15 10^3/uL (1.2-6.7); Basophils % 0.4; Eosinophils % 0.2; HCT 43.2 % (40.0-50.0); HGB 13.9 g/dL (13.5-17.5); Immature Grans % 0.2; Lymphocytes % 28.3; MCH 29.8 pg (27.0-33.0); MCHC 32.2 % (32.0-36.0); MCV 93 fL (80-95); MPV 9.3 fL (8.0-11.0); Monocytes % 7.4; Neutrophils % 63.5; Platelet Count 276 10^3/uL (130-400); RBC 4.66 10^6/uL (4.36-5.78); RDW 13.4 % (11.8-14.1); RDW-SD 45.6 fL; WBC 8.12 10^3/uL (4.4-10.8)
== END 2021-06-29 03:52 | disposition home or self-care (01) ==
LOC: LBO 03:51
PROVIDERS: PCP Nurse Practitioner; Visit Provider Psychiatry & Neurology Psychiatry
DX: F25.0 Schizoaffective disorder, bipolar type (principal); Z79.899 Other long term (current) drug therapy
CPT/HCPCS: 36415; 85025

== ENCOUNTER 2021-07-27 03:59 | Outpatient (CLI) | payer MEDICARE, MEDICAID, SELFPAY ==
[2021-07-27 16:01] LABS: Abs Immature Grans 0.02 10^3/uL (0.0-0.06); Absolute Basophil Count 0.02 10^3/uL (0.0-0.2); Absolute Eosinophil Count 0.02 10^3/uL (0.0-0.7); Absolute Lymphocyte Count 2.42 10^3/uL (1.2-3.4); Absolute Monocyte Count 0.71 10^3/uL (0.1-0.8); Absolute Neutrophil Count 4.56 10^3/uL (1.2-6.7); Basophils % 0.3; Eosinophils % 0.3; HCT 41.4 % (40.0-50.0); HGB 13.4 g/dL (13.5-17.5); Immature Grans % 0.3; Lymphocytes % 31.2; MCH 29.3 pg (27.0-33.0); MCHC 32.4 % (32.0-36.0); MCV 90 fL (80-95); MPV 9.2 fL (8.0-11.0); Monocytes % 9.2; Neutrophils % 58.7; Platelet Count 268 10^3/uL (130-400); RBC 4.58 10^6/uL (4.36-5.78); RDW 13.5 % (11.8-14.1); RDW-SD 44.2 fL; WBC 7.75 10^3/uL (4.4-10.8)
== END 2021-07-27 04:00 | disposition home or self-care (01) ==
LOC: LBO 04:00
PROVIDERS: PCP Nurse Practitioner; Visit Provider Psychiatry & Neurology Psychiatry
DX: F25.0 Schizoaffective disorder, bipolar type (principal); Z79.899 Other long term (current) drug therapy
CPT/HCPCS: 36415; 85025

== ENCOUNTER 2021-08-23 03:07 | Outpatient (CLI) | payer MEDICARE, MEDICAID, SELFPAY ==
[2021-08-23 11:05] LABS: Abs Immature Grans 0.04 10^3/uL (0.0-0.06); Absolute Basophil Count 0.03 10^3/uL (0.0-0.2); Absolute Eosinophil Count 0.03 10^3/uL (0.0-0.7); Absolute Lymphocyte Count 2.38 10^3/uL (1.2-3.4); Absolute Monocyte Count 0.75 10^3/uL (0.1-0.8); Absolute Neutrophil Count 7.56 10^3/uL (1.2-6.7); Basophils % 0.3; Eosinophils % 0.3; HCT 41.9 % (40.0-50.0); HGB 13.7 g/dL (13.5-17.5); Immature Grans % 0.4; Lymphocytes % 22.1; MCH 29.7 pg (27.0-33.0); MCHC 32.7 % (32.0-36.0); MCV 91 fL (80-95); MPV 9.1 fL (8.0-11.0); Neutrophils % 69.9; Platelet Count 260 10^3/uL (130-400); RBC 4.61 10^6/uL (4.36-5.78); RDW 13.8 % (11.8-14.1); RDW-SD 46.1 fL; WBC 10.79 10^3/uL (4.4-10.8)
== END 2021-08-23 03:08 | disposition home or self-care (01) ==
PROVIDERS: PCP Nurse Practitioner; Visit Provider Psychiatry & Neurology Psychiatry
DX: F25.0 Schizoaffective disorder, bipolar type (principal); Z79.899 Other long term (current) drug therapy
CPT/HCPCS: 36415; 85025

== ENCOUNTER 2021-09-22 01:19 | Outpatient (CLI) | payer MEDICARE, MEDICAID, SELFPAY ==
[2021-09-22 15:33] LABS: Abs Immature Grans 0.05 10^3/uL (0.0-0.06); Absolute Basophil Count 0.03 10^3/uL (0.0-0.2); Absolute Eosinophil Count 0.02 10^3/uL (0.0-0.7); Absolute Lymphocyte Count 2.36 10^3/uL (1.2-3.4); Absolute Monocyte Count 0.56 10^3/uL (0.1-0.8); Absolute Neutrophil Count 6.59 10^3/uL (1.2-6.7); Basophils % 0.3; Eosinophils % 0.2; HCT 43.3 % (40.0-50.0); HGB 14.2 g/dL (13.5-17.5); Immature Grans % 0.5; Lymphocytes % 24.6; MCH 29.9 pg (27.0-33.0); MCHC 32.8 % (32.0-36.0); MCV 91 fL (80-95); MPV 8.7 fL (8.0-11.0); Monocytes % 5.8; Neutrophils % 68.6; Platelet Count 247 10^3/uL (130-400); RBC 4.75 10^6/uL (4.36-5.78); RDW 13.6 % (11.8-14.1); RDW-SD 45.4 fL; WBC 9.61 10^3/uL (4.4-10.8)
== END 2021-09-22 01:20 | disposition home or self-care (01) ==
LOC: LBO 01:19
PROVIDERS: PCP Nurse Practitioner; Visit Provider Psychiatry & Neurology Psychiatry
DX: F25.0 Schizoaffective disorder, bipolar type (principal); Z79.899 Other long term (current) drug therapy
CPT/HCPCS: 36415; 85025

== ENCOUNTER 2021-10-19 03:03 | Outpatient (CLI) | payer MEDICARE, MEDICAID, SELFPAY ==
[2021-10-19 12:22] LABS: Abs Immature Grans 0.03 10^3/uL (0.0-0.06); Absolute Basophil Count 0.02 10^3/uL (0.0-0.2); Absolute Eosinophil Count 0.02 10^3/uL (0.0-0.7); Absolute Lymphocyte Count 2.02 10^3/uL (1.2-3.4); Absolute Monocyte Count 0.74 10^3/uL (0.1-0.8); Absolute Neutrophil Count 5.73 10^3/uL (1.2-6.7); Basophils % 0.2; Eosinophils % 0.2; HCT 42.1 % (40.0-50.0); Immature Grans % 0.4; Lymphocytes % 23.6; MCH 29.9 pg (27.0-33.0); MCHC 33.3 % (32.0-36.0); MCV 90 fL (80-95); MPV 9.4 fL (8.0-11.0); Monocytes % 8.6; Platelet Count 291 10^3/uL (130-400); RBC 4.68 10^6/uL (4.36-5.78); RDW 13.9 % (11.8-14.1); WBC 8.56 10^3/uL (4.4-10.8)
[2021-10-19 12:37] LABS: ALT 33 U/L (16-63); AST 19 U/L (15-37); Alkaline Phosphatase 124 U/L (46-116); Anion Gap 8.4 mmol/L (3-11); BUN 13 mg/dL (7-18); Bilirubin, Direct 0.1 mg/dL (0.0-0.2); Bilirubin, Total 0.6 mg/dL (0.2-1.0); CO2 29.6 mmol/L (21.0-32.0); CREATININE 1.2 mg/dL (0.70-1.30); Calcium 8.7 mg/dL (8.5-10.1); Chloride 101 mmol/L (98-107); Estimated GFR 67.95 (mL/min/1.73m2); Glucose 114 mg/dL (74-106); Potassium 4.1 mmol/L (3.5-5.1); Sodium 139 mmol/L (136-145); TSH 0.83 uIU/mL (0.36-3.74); Total Protein 7.2 g/dL (6.4-8.2)
[2021-10-19 13:03] LABS: Calculated LDL 54 mg/dL (<100); Cholesterol 129 mg/dL (<200); HDL Cholesterol 62 mg/dL (40-60); Triglyceride 65 mg/dL (<150)
== END 2021-10-19 03:04 | disposition home or self-care (01) ==
LOC: LOS 03:03
PROVIDERS: PCP Nurse Practitioner; Visit Provider Psychiatry & Neurology Psychiatry
DX: Z79.899 Other long term (current) drug therapy (principal); F25.0 Schizoaffective disorder, bipolar type
CPT/HCPCS: 36415; 80053; 80061; 80076; 84443; 85025

== ENCOUNTER 2021-11-16 02:31 | Outpatient (CLI) | payer MEDICARE, MEDICAID, SELFPAY ==
[2021-11-16 09:25] LABS: Abs Immature Grans 0.03 10^3/uL (0.0-0.06); Absolute Basophil Count 0.03 10^3/uL (0.0-0.2); Absolute Eosinophil Count 0.03 10^3/uL (0.0-0.7); Absolute Lymphocyte Count 2.09 10^3/uL (1.2-3.4); Absolute Monocyte Count 0.62 10^3/uL (0.1-0.8); Absolute Neutrophil Count 5.92 10^3/uL (1.2-6.7); Basophils % 0.3; Eosinophils % 0.3; HCT 43.9 % (40.0-50.0); HGB 14.3 g/dL (13.5-17.5); Immature Grans % 0.3; MCH 29.7 pg (27.0-33.0); MCHC 32.6 % (32.0-36.0); MCV 91 fL (80-95); MPV 9.2 fL (8.0-11.0); Monocytes % 7.1; Platelet Count 253 10^3/uL (130-400); RBC 4.82 10^6/uL (4.36-5.78); RDW 13.5 % (11.8-14.1); WBC 8.72 10^3/uL (4.4-10.8)
== END 2021-11-16 02:32 | disposition home or self-care (01) ==
LOC: LBO 02:31
PROVIDERS: PCP Nurse Practitioner Family; Visit Provider Psychiatry & Neurology Psychiatry
DX: Z79.899 Other long term (current) drug therapy (principal); F25.0 Schizoaffective disorder, bipolar type
CPT/HCPCS: 36415; 85025

== ENCOUNTER 2021-12-13 03:49 | Outpatient (CLI) | payer MEDICARE, MEDICAID, SELFPAY ==
[2021-12-13 15:37] LABS: Abs Immature Grans 0.03 10^3/uL (0.0-0.06); Absolute Basophil Count 0.03 10^3/uL (0.0-0.2); Absolute Eosinophil Count 0.07 10^3/uL (0.0-0.7); Absolute Lymphocyte Count 2.15 10^3/uL (1.2-3.4); Absolute Monocyte Count 0.73 10^3/uL (0.1-0.8); Absolute Neutrophil Count 5.78 10^3/uL (1.2-6.7); Basophils % 0.3; Eosinophils % 0.8; HCT 40.5 % (40.0-50.0); HGB 13.5 g/dL (13.5-17.5); Immature Grans % 0.3; Lymphocytes % 24.5; MCH 30.3 pg (27.0-33.0); MCHC 33.3 % (32.0-36.0); MCV 91 fL (80-95); MPV 9.2 fL (8.0-11.0); Monocytes % 8.3; Neutrophils % 65.8; Platelet Count 300 10^3/uL (130-400); RBC 4.46 10^6/uL (4.36-5.78); RDW 13.8 % (11.8-14.1); RDW-SD 46.1 fL; WBC 8.79 10^3/uL (4.4-10.8)
== END 2021-12-13 03:50 | disposition home or self-care (01) ==
LOC: LBO 03:51
PROVIDERS: PCP Nurse Practitioner Family; Visit Provider Psychiatry & Neurology Psychiatry
DX: F25.0 Schizoaffective disorder, bipolar type (principal); Z79.899 Other long term (current) drug therapy
CPT/HCPCS: 36415; 85025

== ENCOUNTER 2022-01-12 02:20 | Outpatient (CLI) | payer MEDICARE, MEDICAID, SELFPAY ==
[2022-01-12 12:28] LABS: Abs Immature Grans 0.04 10^3/uL (0.0-0.06); Absolute Basophil Count 0.02 10^3/uL (0.0-0.2); Absolute Eosinophil Count 0.04 10^3/uL (0.0-0.7); Absolute Lymphocyte Count 2.32 10^3/uL (1.2-3.4); Absolute Monocyte Count 0.66 10^3/uL (0.1-0.8); Basophils % 0.2; Eosinophils % 0.4; HCT 42.2 % (40.0-50.0); HGB 13.6 g/dL (13.5-17.5); Immature Grans % 0.4; Lymphocytes % 22.6; MCH 29.5 pg (27.0-33.0); MCHC 32.2 % (32.0-36.0); MCV 92 fL (80-95); MPV 8.9 fL (8.0-11.0); Monocytes % 6.4; Platelet Count 266 10^3/uL (130-400); RBC 4.61 10^6/uL (4.36-5.78); RDW 13.4 % (11.8-14.1); RDW-SD 45.4 fL; WBC 10.28 10^3/uL (4.4-10.8)
== END 2022-01-12 02:21 | disposition home or self-care (01) ==
LOC: LBO 02:21
PROVIDERS: PCP Nurse Practitioner Family; Visit Provider Psychiatry & Neurology Psychiatry
DX: F25.0 Schizoaffective disorder, bipolar type (principal); Z79.899 Other long term (current) drug therapy
CPT/HCPCS: 36415; 85025

== ENCOUNTER 2022-02-08 12:23 | Outpatient (CLI) | payer MEDICARE, MEDICAID, SELFPAY ==
[2022-02-08 08:50] LABS: Abs Immature Grans 0.06 10^3/uL (0.0-0.06); Absolute Basophil Count 0.04 10^3/uL (0.0-0.2); Absolute Eosinophil Count 0.03 10^3/uL (0.0-0.7); Absolute Lymphocyte Count 2.75 10^3/uL (1.2-3.4); Absolute Monocyte Count 0.73 10^3/uL (0.1-0.8); Basophils % 0.4; Eosinophils % 0.3; HCT 45.4 % (40.0-50.0); HGB 14.8 g/dL (13.5-17.5); Immature Grans % 0.6; Lymphocytes % 26.9; MCH 29.7 pg (27.0-33.0); MCHC 32.6 % (32.0-36.0); MCV 91 fL (80-95); MPV 8.6 fL (8.0-11.0); Monocytes % 7.1; Neutrophils % 64.7; Platelet Count 316 10^3/uL (130-400); RBC 4.98 10^6/uL (4.36-5.78); RDW 13.4 % (11.8-14.1); RDW-SD 45.4 fL; WBC 10.21 10^3/uL (4.4-10.8)
[2022-02-08 09:15] LABS: Hemoglobin A1C 5.7 % (<5.7)
[2022-02-08 09:31] LABS: ALT 36 U/L (16-63); AST 29 U/L (15-37); Albumin 4.3 g/dL (3.4-5.0); Alkaline Phosphatase 147 U/L (46-116); Anion Gap 7.7 mmol/L (3-11); BUN 18 mg/dL (7-18); Bilirubin, Total 0.5 mg/dL (0.2-1.0); CO2 29.3 mmol/L (21.0-32.0); CREATININE 1.1 mg/dL (0.70-1.30); Calcium 8.9 mg/dL (8.5-10.1); Calculated LDL 61 mg/dL (<100); Chloride 103 mmol/L (98-107); Cholesterol 153 mg/dL (<200); Estimated GFR 75.43 (mL/min/1.73m2); Glucose 114 mg/dL (74-106); HDL Cholesterol 78 mg/dL (40-60); Potassium 4.5 mmol/L (3.5-5.1); Sodium 140 mmol/L (136-145); Total Protein 7.9 g/dL (6.4-8.2); Triglyceride 70 mg/dL (<150)
== END 2022-02-08 12:24 | disposition home or self-care (01) ==
LOC: LBO 12:24
PROVIDERS: PCP Nurse Practitioner Family; Visit Provider Psychiatry & Neurology Psychiatry
DX: R73.03 Prediabetes (principal); E78.5 Hyperlipidemia, unspecified; F25.0 Schizoaffective disorder, bipolar type; Z79.899 Other long term (current) drug therapy
CPT/HCPCS: 36415; 80053; 80061; 83036; 85025

== ENCOUNTER 2022-03-08 02:36 | Outpatient (CLI) | payer MEDICARE, MEDICAID, SELFPAY ==
[2022-03-08 15:49] LABS: Abs Immature Grans 0.03 10^3/uL (0.0-0.06); Absolute Basophil Count 0.02 10^3/uL (0.0-0.2); Absolute Eosinophil Count 0.04 10^3/uL (0.0-0.7); Absolute Lymphocyte Count 2.15 10^3/uL (1.2-3.4); Absolute Monocyte Count 0.52 10^3/uL (0.1-0.8); Absolute Neutrophil Count 6.39 10^3/uL (1.2-6.7); Basophils % 0.2; Eosinophils % 0.4; HCT 43.4 % (40.0-50.0); HGB 14.2 g/dL (13.5-17.5); Immature Grans % 0.3; Lymphocytes % 23.5; MCH 29.6 pg (27.0-33.0); MCHC 32.7 % (32.0-36.0); MCV 90 fL (80-95); MPV 8.9 fL (8.0-11.0); Monocytes % 5.7; Neutrophils % 69.9; Platelet Count 287 10^3/uL (130-400); RDW 13.9 % (11.8-14.1); RDW-SD 46.3 fL; WBC 9.15 10^3/uL (4.4-10.8)
== END 2022-03-08 02:37 | disposition home or self-care (01) ==
LOC: LBO 02:36
PROVIDERS: PCP Nurse Practitioner Family; Visit Provider Psychiatry & Neurology Psychiatry
DX: F25.0 Schizoaffective disorder, bipolar type (principal); Z79.899 Other long term (current) drug therapy
CPT/HCPCS: 36415; 85025

== ENCOUNTER → 2022-03-15 08:01 | Outpatient (BNVA) | payer MEDICARE, MEDICAID, SELFPAY | PROVIDERS: PCP Nurse Practitioner Family; Referring Provider Nurse Practitioner Family; Visit Provider Nurse Practitioner Adult Health | DX: F25.9 Schizoaffective disorder, unspecified (principal); R41.3 Other amnesia | CPT/HCPCS: 99204 ==

== ENCOUNTER 2022-04-06 02:06 | Outpatient (CLI) | payer MEDICARE, MEDICAID, SELFPAY ==
[2022-04-06 15:19] LABS: Abs Immature Grans 0.04 10^3/uL (0.0-0.06); Absolute Basophil Count 0.02 10^3/uL (0.0-0.2); Absolute Eosinophil Count 0.03 10^3/uL (0.0-0.7); Absolute Lymphocyte Count 2.36 10^3/uL (1.2-3.4); Absolute Neutrophil Count 6.25 10^3/uL (1.2-6.7); Basophils % 0.2; Eosinophils % 0.3; HCT 42.6 % (40.0-50.0); Immature Grans % 0.4; Lymphocytes % 25.1; MCH 29.7 pg (27.0-33.0); MCHC 32.9 % (32.0-36.0); MCV 90 fL (80-95); MPV 8.9 fL (8.0-11.0); Monocytes % 7.4; Neutrophils % 66.6; Platelet Count 282 10^3/uL (130-400); RBC 4.72 10^6/uL (4.36-5.78); RDW 13.7 % (11.8-14.1); RDW-SD 46.2 fL
== END 2022-04-06 02:07 | disposition home or self-care (01) ==
LOC: LBO 02:07
PROVIDERS: PCP Nurse Practitioner Family; Visit Provider Psychiatry & Neurology Psychiatry
DX: F25.0 Schizoaffective disorder, bipolar type; Z79.899 Other long term (current) drug therapy
CPT/HCPCS: 36415; 80053; 80061; 80076; 84443; 85025

== ENCOUNTER 2022-04-10 01:35 | Outpatient (CLI) | payer MEDICARE, MEDICAID, SELFPAY ==
--- NOTE | 2022-04-10 07:45 | DI.MRI_ITS ---
Exam(s) MR BRAIN WO EXAM: MR BRAIN WO CLINICAL HISTORY: worsening memory,MEMORY LOSS, R41.3 TECHNIQUE: Multiplanar multisequence MRI of the brain was performed. COMPARISON: No exams were available for comparison FINDINGS: CEREBRAL PARENCHYMA: There is no evidence of intracranial hemorrhage, mass effect, or shift of midline structures. There are no extra-axial fluid collections. Ventricles are not enlarged or shifted. There is no significant focal signal abnormality in the cerebellar hemispheres nor within the hector, m idbrain, and thalami. There is a focus of signal abnormality in the left frontoparietal white matter measuring 6 x 5 millim eters, not associated with hemorrhage or surrounding edema nor restricted diffusion on DWI. Another smaller tiny 2 millimeter nonspecific focus of signal abnormality is noted in the right anterior forc eps white matter. No evidence of territorial infarction. There is no significant focal signal abnormality evident on diffusion imaging to suggest acute ischem ic event. PITUITARY GLAND: No mass nor parasellar abnormality. No obvious abnormality in the cavernous sinuses. FLOW VOIDS: The expected flow void are noted. No evidence of obvious aneurysm nor obvious vascular ma lformation. PARANASAL SINUSES: The visualized paranasal sinuses appear unremarkable. No obvious finding ORBITS: No obvious findings. IMPRESSION: There is a 5 x 6 millimeter focus of signal abnormality in the left frontoparietal white matter which is not associated with hemorrhage, surrounding edema, nor restricted diffusion. Possibly represents a nonacute lacunar infarct. This is a nonspecific finding. Another smaller tiny 2 millimeter focus is seen in the anterior forceps white matter. Recommend repeat MRI in 6 months to ensure stability. DATA REPOSITORY:
== END 2022-04-10 01:55 ==
LOC: DI 01:35
PROVIDERS: PCP Nurse Practitioner Family; Visit Provider Nurse Practitioner Adult Health
DX: R41.3 Other amnesia (principal); R94.02 Abnormal brain scan
CPT/HCPCS: 70551

== ENCOUNTER 2022-05-04 09:26 | Outpatient (CLI) | payer MEDICARE, MEDICAID, SELFPAY ==
[2022-05-04 09:30] LABS: Abs Immature Grans 0.04 10^3/uL (0.0-0.06); Absolute Basophil Count 0.02 10^3/uL (0.0-0.2); Absolute Eosinophil Count 0.02 10^3/uL (0.0-0.7); Absolute Lymphocyte Count 2.38 10^3/uL (1.2-3.4); Absolute Monocyte Count 0.57 10^3/uL (0.1-0.8); Absolute Neutrophil Count 4.48 10^3/uL (1.2-6.7); Basophils % 0.3; Eosinophils % 0.3; HCT 44.1 % (40.0-50.0); HGB 14.5 g/dL (13.5-17.5); Immature Grans % 0.5; Lymphocytes % 31.7; MCH 29.2 pg (27.0-33.0); MCHC 32.9 % (32.0-36.0); MCV 89 fL (80-95); MPV 8.6 fL (8.0-11.0); Monocytes % 7.6; Neutrophils % 59.6; Platelet Count 324 10^3/uL (130-400); RBC 4.97 10^6/uL (4.36-5.78); RDW 13.5 % (11.8-14.1); RDW-SD 44.3 fL; WBC 7.51 10^3/uL (4.4-10.8)
[2022-05-04 10:29] LABS: ALT 33 U/L (16-63); AST 19 U/L (15-37); Alkaline Phosphatase 137 U/L (46-116); BUN 14 mg/dL (7-18); Bilirubin, Total 0.5 mg/dL (0.2-1.0); CREATININE 1.3 mg/dL (0.70-1.30); Calcium 8.7 mg/dL (8.5-10.1); Calculated LDL 41 mg/dL (<100); Chloride 103 mmol/L (98-107); Cholesterol 104 mg/dL (<200); Estimated GFR 61.35 (mL/min/1.73m2); Glucose 110 mg/dL (74-106); HDL Cholesterol 45 mg/dL (40-60); Potassium 3.8 mmol/L (3.5-5.1); Sodium 140 mmol/L (136-145); TSH (W/Ref FT4) 0.72 uIU/mL (0.36-3.74); Triglyceride 90 mg/dL (<150); Vitamin B12 1038 pg/mL (193-986)
[2022-05-04 10:39] LABS: Bilirubin, Direct 0.1 mg/dL (0.0-0.2)
== END 2022-05-04 09:27 | disposition home or self-care (01) ==
LOC: LBO 09:27
PROVIDERS: PCP Nurse Practitioner Family; Visit Provider Nurse Practitioner Adult Health
DX: F25.0 Schizoaffective disorder, bipolar type (principal); Z79.899 Other long term (current) drug therapy
CPT/HCPCS: 36415; 80053; 80061; 80076; 82607; 84443; 85025

== ENCOUNTER 2022-06-01 01:54 | Outpatient (CLI) | payer MEDICARE, MEDICAID, SELFPAY ==
[2022-06-01 09:14] LABS: Abs Immature Grans 0.04 10^3/uL (0.0-0.06); Absolute Basophil Count 0.03 10^3/uL (0.0-0.2); Absolute Eosinophil Count 0.02 10^3/uL (0.0-0.7); Absolute Lymphocyte Count 2.15 10^3/uL (1.2-3.4); Absolute Monocyte Count 0.47 10^3/uL (0.1-0.8); Absolute Neutrophil Count 5.58 10^3/uL (1.2-6.7); Basophils % 0.4; Eosinophils % 0.2; HCT 45.6 % (40.0-50.0); HGB 14.8 g/dL (13.5-17.5); Immature Grans % 0.5; Lymphocytes % 25.9; MCHC 32.5 % (32.0-36.0); MCV 89 fL (80-95); MPV 8.5 fL (8.0-11.0); Monocytes % 5.7; Neutrophils % 67.3; Platelet Count 295 10^3/uL (130-400); RDW 13.8 % (11.8-14.1); RDW-SD 45.1 fL; WBC 8.29 10^3/uL (4.4-10.8)
== END 2022-06-01 01:55 | disposition home or self-care (01) ==
LOC: LBO 01:55
PROVIDERS: PCP Nurse Practitioner Family; Visit Provider Psychiatry & Neurology Psychiatry
DX: Z79.899 Other long term (current) drug therapy (principal)
CPT/HCPCS: 36415; 85025

== ENCOUNTER → 2022-06-14 08:58 | Outpatient (BNVA) | payer MEDICARE, MEDICAID, SELFPAY | PROVIDERS: PCP Nurse Practitioner Family; Referring Provider Nurse Practitioner Family; Visit Provider Nurse Practitioner Adult Health | DX: G31.84 Mild cognitive impairment of uncertain or unknown etiology (principal); F25.9 Schizoaffective disorder, unspecified; G47.9 Sleep disorder, unspecified | CPT/HCPCS: 99213; 99214 ==

== ENCOUNTER 2022-06-29 14:45 | Outpatient (CLI) | payer MEDICARE, MEDICAID, SELFPAY ==
[2022-06-29 11:48] LABS: Abs Immature Grans 0.03 10^3/uL (0.0-0.06); Absolute Basophil Count 0.02 10^3/uL (0.0-0.2); Absolute Eosinophil Count 0.02 10^3/uL (0.0-0.7); Absolute Lymphocyte Count 2.61 10^3/uL (1.2-3.4); Absolute Monocyte Count 0.64 10^3/uL (0.1-0.8); Absolute Neutrophil Count 5.15 10^3/uL (1.2-6.7); Basophils % 0.2; Eosinophils % 0.2; HCT 43.4 % (40.0-50.0); HGB 14.2 g/dL (13.5-17.5); Immature Grans % 0.4; Lymphocytes % 30.8; MCHC 32.7 % (32.0-36.0); MCV 89 fL (80-95); MPV 8.4 fL (8.0-11.0); Monocytes % 7.6; Neutrophils % 60.8; Platelet Count 279 10^3/uL (130-400); RBC 4.89 10^6/uL (4.36-5.78); RDW 13.8 % (11.8-14.1); RDW-SD 44.9 fL; WBC 8.47 10^3/uL (4.4-10.8)
== END 2022-06-29 14:46 | disposition home or self-care (01) ==
LOC: LBO 14:45
PROVIDERS: PCP Nurse Practitioner Family; Visit Provider Counselor Addiction (Substance Use Disorder)
DX: F20.9 Schizophrenia, unspecified (principal); Z79.899 Other long term (current) drug therapy
CPT/HCPCS: 36415; 85025

== ENCOUNTER 2022-07-30 11:20 | Outpatient (CLI) | payer MEDICARE, MEDICAID, SELFPAY ==
[2022-07-30 09:31] LABS: Abs Immature Grans 0.04 10^3/uL (0.0-0.06); Absolute Basophil Count 0.03 10^3/uL (0.0-0.2); Absolute Eosinophil Count 0.01 10^3/uL (0.0-0.7); Absolute Lymphocyte Count 2.26 10^3/uL (1.2-3.4); Absolute Monocyte Count 0.55 10^3/uL (0.1-0.8); Absolute Neutrophil Count 5.73 10^3/uL (1.2-6.7); Basophils % 0.3; Eosinophils % 0.1; HCT 44.3 % (40.0-50.0); HGB 14.4 g/dL (13.5-17.5); Immature Grans % 0.5; Lymphocytes % 26.2; MCH 29.2 pg (27.0-33.0); MCHC 32.5 % (32.0-36.0); MCV 90 fL (80-95); MPV 8.6 fL (8.0-11.0); Monocytes % 6.4; Neutrophils % 66.5; Platelet Count 271 10^3/uL (130-400); RBC 4.93 10^6/uL (4.36-5.78); RDW 14.2 % (11.8-14.1); RDW-SD 46.6 fL; WBC 8.62 10^3/uL (4.4-10.8)
== END 2022-07-30 11:21 | disposition home or self-care (01) ==
LOC: LBO 11:23
PROVIDERS: PCP Nurse Practitioner Family; Visit Provider Counselor Addiction (Substance Use Disorder)
DX: F20.9 Schizophrenia, unspecified (principal); Z79.899 Other long term (current) drug therapy
CPT/HCPCS: 36415; 85025

== ENCOUNTER 2022-08-27 15:12 | Outpatient (CLI) | payer MEDICARE, MEDICAID, SELFPAY ==
[2022-08-27 10:54] LABS: Abs Immature Grans 0.06 10^3/uL (0.0-0.06); Absolute Basophil Count 0.03 10^3/uL (0.0-0.2); Absolute Lymphocyte Count 2.14 10^3/uL (1.2-3.4); Basophils % 0.2; Eosinophils % 0.2; HCT 40.2 % (40.0-50.0); HGB 13.3 g/dL (13.5-17.5); Immature Grans % 0.5; Lymphocytes % 16.9; MCH 29.8 pg (27.0-33.0); MCHC 33.1 % (32.0-36.0); MCV 90 fL (80-95); MPV 8.3 fL (8.0-11.0); Monocytes % 5.1; Neutrophils % 77.1; Platelet Count 250 10^3/uL (130-400); RBC 4.46 10^6/uL (4.36-5.78); RDW 14.6 % (11.8-14.1); RDW-SD 47.8 fL; WBC 12.67 10^3/uL (4.4-10.8)
[2022-08-27 10:55] LABS: Absolute Eosinophil Count 0.03 10^3/uL (0.0-0.7); Absolute Monocyte Count 0.65 10^3/uL (0.1-0.8); Absolute Neutrophil Count 9.77 10^3/uL (1.2-6.7)
[2022-08-27 11:51] LABS: ALT 27 U/L (16-63); AST 20 U/L (15-37); Albumin 3.8 g/dL (3.4-5.0); Alkaline Phosphatase 112 U/L (46-116); Anion Gap 8.6 mmol/L (3-11); BUN 14 mg/dL (7-18); Bilirubin, Total 0.4 mg/dL (0.2-1.0); CO2 26.4 mmol/L (21.0-32.0); CREATININE 1.3 mg/dL (0.70-1.30); Calculated LDL 51 mg/dL (<100); Chloride 106 mmol/L (98-107); Cholesterol 122 mg/dL (<200); Estimated GFR 61.35 (mL/min/1.73m2); Glucose 98 mg/dL (74-106); HDL Cholesterol 55 mg/dL (40-60); Potassium 4.4 mmol/L (3.5-5.1); Sodium 141 mmol/L (136-145); TSH 0.87 uIU/mL (0.36-3.74); Total Protein 6.6 g/dL (6.4-8.2); Triglyceride 81 mg/dL (<150)
[2022-08-27 12:02] LABS: Bilirubin, Direct 0.2 mg/dL (0.0-0.2)
== END 2022-08-27 15:13 | disposition home or self-care (01) ==
LOC: LBO 15:13
PROVIDERS: PCP Nurse Practitioner Family; Visit Provider Counselor Addiction (Substance Use Disorder)
DX: Z79.899 Other long term (current) drug therapy (principal); F20.9 Schizophrenia, unspecified
CPT/HCPCS: 36415; 80053; 80061; 80076; 84443; 85025

== ENCOUNTER 2022-09-06 12:00 | Emergency (ER) | payer MEDICARE, MEDICAID, SELFPAY ==
[2022-09-06] VITALS (56 sets, daily range): BP systolic 112–147; BP diastolic 46–72; PULSE 64–82; RESP 9–35; TEMP 36.4–36.9; O2SAT 91–98
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
--- NOTE | 2022-09-06 12:00 | DI.CT_ITS ---
Exam(s) CT CHEST/ABD/PEL W CLINICAL HISTORY: . TECHNIQUE: Imaging Protocol: Axial computed tomography images with coronal and sagittal reformatted images were created and reviewed CONTRAST MATERIAL: Intravenous: Omnipaque 350 Contrast volume:100 ml Oral: None COMPARISON: No exams were available for comparison FINDINGS: CHEST: LUNGS: No evidence of significant lung contusion or pleural effusion and no pneumothorax. Mild incre ased markings are noted in the lung bases. No obstructing findings in the trachea and mainstem bronc hi.. MEDIASTINUM: No evidence of sternal fracture nor mediastinal hematoma. Visualized thyroid unremarkab le.No intrathoracic adenopathy. CARDIAC: Heart size is normal. There is a small pericardial effusion located inferiorly. Maximum th ickness 7 mm. No evidence of aortic dissection nor other ordered trauma. OSSEOUS: No obvious rib fractures. No sternal fracture. No clavicle fractures. No vertebral fractu res.. ABDOMEN: There is no ascites. No evidence of mesenteric nor bowel wall hematoma. LIVER: No liver laceration nor other significant findings in the liver. GALLBLADDER/BILIARY: Gallbladder surgically absent. CBD is not dilated. PANCREAS: No evidence of pancreatic mass nor dilatation of the pancreatic duct. SPLEEN: Spleen size normal. No splenic laceration. No perisplenic fluid. Splenic and portal veins are patent. ADRENALS: There are no significant adrenal masses. KIDNEYS: No evidence of renal laceration or subcapsular hematoma. Small nonobstructive calculus is n oted in the lower pole calyx of the left kidney measuring 3 mm. Small 1 cm cyst noted in the right k idney. No incidental solid renal masses. No hydronephrosis.. No cysts evident. ABDOMINAL AORTA: Intact. No dissection. No aneurysm. Aortoiliac segments also unremarkable. LYMPH NODES: There is no retroperitoneal nor paraaortic adenopathy. ABDOMINAL WALL: No evidence of anterior abdominal wall hematoma. Fat only containing umbilical herni a noted. No bowel obstruction. GI: There is no evidence of bowel obstruction.No bowel wall hematoma. No mesenteric hematoma. PELVIS: LYMPH NODES: There is no intrapelvic nor inguinal adenopathy. GI: No evidence of appendicitis.No evidence of sigmoid diverticulitis. URINARY BLADDER: Bladder is somewhat distended. No extravasation. REPRODUCTIVE: Prostate size upper normal. There is some hyperdensity in the mid prostate noted of qu estionable significance. No surrounding fluid. No surrounding obturator adenopathy. OSSEOUS: No significant osseous lesions. IMPRESSION: 1. No fractures. No lung contusions. No pneumothorax. No pleural effusions. 2. Small pericardial effusion noted. Thoracic aorta appears unremarkable. 3. No significant trauma sequelae in the abdomen and pelvis. 4. Other findings as above. Called by myself to ER physician. RADIATION DOSE DELIVERED: Total DLP DATA REPOSITORY: All CT scans at this facility are submitted to the National Radiology Data Registry (NRDR) Dose Index Registry (DIR) with the [employer] (ACR). RADIATION OPTIMIZATION: All CT scans at this facility use at least one of these dose optimization te chniques: automated exposure control; mA and/or kV adjustment per patient size (includes targeted exa ms where dose is matched to clinical indication); or iterative reconstruction.
--- NOTE | 2022-09-06 12:13 | DI.CT_ITS ---
Exam(s) CT HEAD CERVICAL SPINE WO CLINICAL HISTORY: . TECHNIQUE: Imaging Protocol: Axial computed tomography images with coronal and sagittal reformatted images were created and reviewed COMPARISON: CT HEAD WITH CONTRAST from 05/02/2009 FINDINGS: BRAIN: There are no skull fractures nor fluid in the visualized paranasal sinuses. There is no evidence of intracranial hemorrhage, mass effect, or shift of midline structures. There are no extra-axial fluid collections. The ventricles are not enlarged or shifted and there is no blo od within the ventricular system nor within the basal cisterns. CERVICAL SPINE: There advanced multilevel degenerative changes, including multilevel osteophytes. There are no acute vertebral body fractures. There is no evidence of fracture nor listhesis. No significant prevertebral soft tissue swelling. There is no significant facet joint malalignment. No significant osseous lesions evident. IMPRESSION: No acute intracranial findings on this noninfused CT scan of the brain. No evidence of cervical spine fracture, malalignment, nor acute compromise of the cervical spinal can al. Multilevel degenerative disc disease and degenerative changes throughout the cervical spine. RADIATION DOSE DELIVERED: 1,769.84mGy.cm Total DLP DATA REPOSITORY: All CT scans at this facility are submitted to the National Radiology Data Registry (NRDR) Dose Index Registry (DIR) with the [employer] (ACR). RADIATION OPTIMIZATION: All CT scans at this facility use at least one of these dose optimization te chniques: automated exposure control; mA and/or kV adjustment per patient size (includes targeted exa ms where dose is matched to clinical indication); or iterative reconstruction.
[2022-09-06] MEDS: Normal Saline 1,000 ML 1000 ML IV (12:40)
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
[2022-09-06 16:10] LABS: ALT 27 U/L (16-63); AST 21 U/L (15-37); Albumin 4.3 g/dL (3.4-5.0); Alkaline Phosphatase 122 U/L (46-116); Anion Gap 9.3 mmol/L (3-11); BUN 16 mg/dL (7-18); Bilirubin, Total 0.4 mg/dL (0.2-1.0); CO2 26.7 mmol/L (21.0-32.0); CREATININE 1.3 mg/dL (0.70-1.30); Calcium 8.5 mg/dL (8.5-10.1); Chloride 106 mmol/L (98-107); Estimated GFR 61.35 (mL/min/1.73m2); Glucose 117 mg/dL (74-106); Lipase 47 U/L (16-77); Potassium 4.4 mmol/L (3.5-5.1); Sodium 142 mmol/L (136-145); Total Protein 7.3 g/dL (6.4-8.2)
[2022-09-06 16:14] LABS: Abs Immature Grans 0.08 10^3/uL (0.0-0.06); Absolute Basophil Count 0.01 10^3/uL (0.0-0.2); Absolute Eosinophil Count 0.01 10^3/uL (0.0-0.7); Absolute Lymphocyte Count 2.15 10^3/uL (1.2-3.4); Basophils % 0.1; Eosinophils % 0.1; HCT 42.1 % (40.0-50.0); Immature Grans % 0.9; Lymphocytes % 23.5; MCH 29.9 pg (27.0-33.0); MCHC 33.3 % (32.0-36.0); MCV 90 fL (80-95); Monocytes % 5.5; Neutrophils % 69.9; Platelet Count 261 10^3/uL (130-400); RBC 4.69 10^6/uL (4.36-5.78); RDW 14.6 % (11.8-14.1); RDW-SD 47.4 fL; WBC 9.15 10^3/uL (4.4-10.8)
[2022-09-06 16:21] LABS: Troponin I < 50 ng/L (<or=60)
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
[2022-09-06] MEDS: LORazepam 2 MG/ML VIAL (18:44)
--- NOTE | 2022-09-06 18:45 | NUR.NOTE ---
Nursing Note: Fentanl 50mcg ordered by PA. PA changed mind and med not given. 1 mg ativan given instead per PA order
[2022-09-07] MEDS: Omnipaque 350 MG/ML 500 ML BTL-Imaging package IJ (10:19)
[2022-09-07] MEDS: Normal Saline - Diluent 50 ML VIAL IJ (10:21)
== END 2022-09-06 18:07 | disposition short-term general hospital (02) ==
PROVIDERS: Physician Assistant; Emergency Provider Student in an Organized Health Care Education/Training Program; PCP Nurse Practitioner Family
DX: M54.9 Dorsalgia, unspecified (principal); I30.9 Acute pericarditis, unspecified; V43.52XA Car driver injured in collision with other type car in traffic accident, initial encounter
CPT/HCPCS: 74177; 80053; 83690; 86850; 86900; 86901; 93005; 96360; 96361; 99285; 70450; 71260; 72125; 84484; 85025; 85610; 93010; J2060

== ENCOUNTER 2022-09-24 12:54 | Outpatient (CLI) | payer MEDICARE, MEDICAID, SELFPAY ==
[2022-09-24 09:08] LABS: Abs Immature Grans 0.09 10^3/uL (0.0-0.06); Absolute Basophil Count 0.04 10^3/uL (0.0-0.2); Absolute Eosinophil Count 0.08 10^3/uL (0.0-0.7); Absolute Lymphocyte Count 2.77 10^3/uL (1.2-3.4); Absolute Monocyte Count 0.76 10^3/uL (0.1-0.8); Absolute Neutrophil Count 6.38 10^3/uL (1.2-6.7); Basophils % 0.4; Eosinophils % 0.8; HCT 42.1 % (40.0-50.0); HGB 13.6 g/dL (13.5-17.5); Immature Grans % 0.9; Lymphocytes % 27.4; MCH 29.4 pg (27.0-33.0); MCHC 32.3 % (32.0-36.0); MCV 91 fL (80-95); MPV 8.6 fL (8.0-11.0); Monocytes % 7.5; Platelet Count 300 10^3/uL (130-400); RBC 4.62 10^6/uL (4.36-5.78); RDW 14.6 % (11.8-14.1); RDW-SD 49.1 fL; WBC 10.12 10^3/uL (4.4-10.8)
[2022-09-24 09:57] LABS: ALT 34 U/L (16-63); AST 20 U/L (15-37); Albumin 3.7 g/dL (3.4-5.0); Alkaline Phosphatase 147 U/L (46-116); Anion Gap 9.9 mmol/L (3-11); BUN 22 mg/dL (7-18); Bilirubin, Total 0.4 mg/dL (0.2-1.0); CO2 27.1 mmol/L (21.0-32.0); CREATININE 1.3 mg/dL (0.70-1.30); Calcium 8.5 mg/dL (8.5-10.1); Calculated LDL 72 mg/dL (<100); Chloride 103 mmol/L (98-107); Cholesterol 158 mg/dL (<200); Estimated GFR 61.35 (mL/min/1.73m2); Glucose 111 mg/dL (74-106); HDL Cholesterol 58 mg/dL (40-60); Potassium 4.3 mmol/L (3.5-5.1); Sodium 140 mmol/L (136-145); TSH 1.27 uIU/mL (0.36-3.74); Total Protein 6.8 g/dL (6.4-8.2); Triglyceride 141 mg/dL (<150)
[2022-09-24 10:31] LABS: Bilirubin, Direct 0.1 mg/dL (0.0-0.2)
== END 2022-09-24 12:55 | disposition home or self-care (01) ==
LOC: LBO 12:57
PROVIDERS: PCP Nurse Practitioner Family; Visit Provider Counselor Addiction (Substance Use Disorder)
DX: Z79.899 Other long term (current) drug therapy (principal); F20.9 Schizophrenia, unspecified
CPT/HCPCS: 36415; 80053; 80061; 80076; 84443; 85025

== ENCOUNTER 2022-10-23 02:45 | Outpatient (CLI) | payer MEDICARE, MEDICAID, SELFPAY ==
[2022-10-23 09:24] LABS: Abs Immature Grans 0.03 10^3/uL (0.0-0.06); Absolute Basophil Count 0.02 10^3/uL (0.0-0.2); Absolute Eosinophil Count 0.03 10^3/uL (0.0-0.7); Absolute Lymphocyte Count 1.89 10^3/uL (1.2-3.4); Absolute Monocyte Count 0.45 10^3/uL (0.1-0.8); Basophils % 0.3; Eosinophils % 0.4; HCT 38.7 % (40.0-50.0); HGB 12.7 g/dL (13.5-17.5); Immature Grans % 0.4; Lymphocytes % 28.1; MCH 29.7 pg (27.0-33.0); MCHC 32.8 % (32.0-36.0); MCV 91 fL (80-95); MPV 8.6 fL (8.0-11.0); Monocytes % 6.7; Neutrophils % 64.1; Platelet Count 260 10^3/uL (130-400); RBC 4.27 10^6/uL (4.36-5.78); RDW 14.7 % (11.8-14.1); WBC 6.72 10^3/uL (4.4-10.8)
[2022-10-23 10:02] LABS: ALT 32 U/L (16-63); AST 24 U/L (15-37); Albumin 3.7 g/dL (3.4-5.0); Alkaline Phosphatase 126 U/L (46-116); Anion Gap 8.5 mmol/L (3-11); BUN 10 mg/dL (7-18); Bilirubin, Total 0.5 mg/dL (0.2-1.0); CO2 28.5 mmol/L (21.0-32.0); CREATININE 1.2 mg/dL (0.70-1.30); Calcium 8.4 mg/dL (8.5-10.1); Calculated LDL 55 mg/dL (<100); Chloride 104 mmol/L (98-107); Cholesterol 143 mg/dL (<200); Estimated GFR 67.53 (mL/min/1.73m2); Glucose 113 mg/dL (74-106); HDL Cholesterol 70 mg/dL (40-60); Potassium 4.2 mmol/L (3.5-5.1); Sodium 141 mmol/L (136-145); TSH 0.66 uIU/mL (0.36-3.74); Triglyceride 92 mg/dL (<150)
[2022-10-23 10:12] LABS: Bilirubin, Direct 0.1 mg/dL (0.0-0.2)
== END 2022-10-23 02:46 | disposition home or self-care (01) ==
LOC: LBO 02:45
PROVIDERS: PCP Nurse Practitioner Family; Visit Provider Counselor Addiction (Substance Use Disorder)
DX: F20.9 Schizophrenia, unspecified (principal); Z79.899 Other long term (current) drug therapy
CPT/HCPCS: 36415; 80053; 80061; 80076; 84443; 85025

== ENCOUNTER 2022-11-19 08:59 | Outpatient (CLI) | payer MEDICARE, MEDICAID, SELFPAY ==
[2022-11-19 11:23] LABS: Abs Immature Grans 0.05 10^3/uL (0.0-0.06); Absolute Basophil Count 0.03 10^3/uL (0.0-0.2); Absolute Eosinophil Count 0.07 10^3/uL (0.0-0.7); Absolute Lymphocyte Count 1.92 10^3/uL (1.2-3.4); Absolute Monocyte Count 0.74 10^3/uL (0.1-0.8); Absolute Neutrophil Count 6.74 10^3/uL (1.2-6.7); Basophils % 0.3; Eosinophils % 0.7; HCT 39.6 % (40.0-50.0); HGB 12.9 g/dL (13.5-17.5); Immature Grans % 0.5; Lymphocytes % 20.1; MCH 29.7 pg (27.0-33.0); MCHC 32.6 % (32.0-36.0); MCV 91 fL (80-95); MPV 8.7 fL (8.0-11.0); Monocytes % 7.7; Neutrophils % 70.7; Platelet Count 279 10^3/uL (130-400); RBC 4.35 10^6/uL (4.36-5.78); RDW 13.9 % (11.8-14.1); RDW-SD 46.7 fL; WBC 9.55 10^3/uL (4.4-10.8)
[2022-11-19 12:09] LABS: ALT 23 U/L (16-63); AST 16 U/L (15-37); Albumin 3.7 g/dL (3.4-5.0); Alkaline Phosphatase 134 U/L (46-116); Anion Gap 6.3 mmol/L (3-11); BUN 14 mg/dL (7-18); Bilirubin, Direct 0.1 mg/dL (0.0-0.2); Bilirubin, Total 0.4 mg/dL (0.2-1.0); CO2 27.7 mmol/L (21.0-32.0); CREATININE 1.1 mg/dL (0.70-1.30); Calcium 8.7 mg/dL (8.5-10.1); Chloride 104 mmol/L (98-107); Estimated GFR 74.96 (mL/min/1.73m2); Glucose 106 mg/dL (74-106); Potassium 4.2 mmol/L (3.5-5.1); Sodium 138 mmol/L (136-145); TSH 1.04 uIU/mL (0.36-3.74); Total Protein 6.9 g/dL (6.4-8.2)
[2022-11-19 12:32] LABS: Calculated LDL 71 mg/dL (<100); Cholesterol 145 mg/dL (<200); HDL Cholesterol 59 mg/dL (40-60); Triglyceride 78 mg/dL (<150)
== END 2022-11-19 09:00 | disposition home or self-care (01) ==
LOC: LBO 09:04
PROVIDERS: PCP Nurse Practitioner Family; Visit Provider Counselor Addiction (Substance Use Disorder)
DX: Z79.899 Other long term (current) drug therapy (principal); F20.9 Schizophrenia, unspecified
CPT/HCPCS: 36415; 80053; 80061; 80076; 84443; 85025

== ENCOUNTER 2022-12-14 13:50 | Outpatient (CLI) | payer MEDICARE, MEDICAID, SELFPAY ==
[2022-12-14 12:17] LABS: Abs Immature Grans 0.13 10^3/uL (0.0-0.06); Absolute Basophil Count 0.03 10^3/uL (0.0-0.2); Absolute Eosinophil Count 0.03 10^3/uL (0.0-0.7); Absolute Lymphocyte Count 2.01 10^3/uL (1.2-3.4); Absolute Monocyte Count 0.59 10^3/uL (0.1-0.8); Basophils % 0.3; Eosinophils % 0.3; HCT 42.6 % (40.0-50.0); HGB 13.7 g/dL (13.5-17.5); Immature Grans % 1.2; MCH 28.8 pg (27.0-33.0); MCHC 32.2 % (32.0-36.0); MCV 90 fL (80-95); MPV 8.2 fL (8.0-11.0); Monocytes % 5.3; Neutrophils % 74.9; Platelet Count 374 10^3/uL (130-400); RBC 4.75 10^6/uL (4.36-5.78); RDW 13.2 % (11.8-14.1); RDW-SD 43.6 fL; WBC 11.19 10^3/uL (4.4-10.8)
[2022-12-14 12:21] LABS: Absolute Neutrophil Count 8.38 10^3/uL (1.2-6.7)
[2022-12-14 13:03] LABS: ALT 20 U/L (16-63); AST 17 U/L (15-37); Albumin 3.6 g/dL (3.4-5.0); Alkaline Phosphatase 156 U/L (46-116); Bilirubin, Direct 0.1 mg/dL (0.0-0.2); Bilirubin, Total 0.4 mg/dL (0.2-1.0); TSH 0.79 uIU/mL (0.36-3.74); Total Protein 7.5 g/dL (6.4-8.2)
[2022-12-14 13:15] LABS: Calculated LDL 59 mg/dL (<100); Cholesterol 130 mg/dL (<200); HDL Cholesterol 54 mg/dL (40-60); Triglyceride 87 mg/dL (<150)
[2022-12-14 13:39] LABS: Anion Gap 12.4 mmol/L (3-11); BUN 16 mg/dL (7-18); CO2 26.6 mmol/L (21.0-32.0); CREATININE 1.2 mg/dL (0.70-1.30); Calcium 9.1 mg/dL (8.5-10.1); Chloride 101 mmol/L (98-107); Estimated GFR 67.53 (mL/min/1.73m2); Glucose 115 mg/dL (74-106); Potassium 4.4 mmol/L (3.5-5.1); Sodium 140 mmol/L (136-145)
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
== END 2022-12-14 13:51 | disposition home or self-care (01) ==
LOC: LBO 13:51
PROVIDERS: PCP Nurse Practitioner Family; Visit Provider Counselor Addiction (Substance Use Disorder)
DX: Z79.899 Other long term (current) drug therapy (principal); F20.9 Schizophrenia, unspecified
CPT/HCPCS: 36415; 80053; 80061; 80076; 84443; 85025

== ENCOUNTER 2023-01-14 13:28 | Outpatient (CLI) | payer MEDICARE, MEDICAID, SELFPAY ==
[2023-01-14 10:43] LABS: Abs Immature Grans 0.05 10^3/uL (0.0-0.06); Absolute Basophil Count 0.01 10^3/uL (0.0-0.2); Absolute Eosinophil Count 0.01 10^3/uL (0.0-0.7); Absolute Lymphocyte Count 1.79 10^3/uL (1.2-3.4); Absolute Monocyte Count 0.35 10^3/uL (0.1-0.8); Absolute Neutrophil Count 6.82 10^3/uL (1.2-6.7); Basophils % 0.1; Eosinophils % 0.1; HCT 43.5 % (40.0-50.0); HGB 13.9 g/dL (13.5-17.5); Immature Grans % 0.6; Lymphocytes % 19.8; MCH 28.7 pg (27.0-33.0); MCV 90 fL (80-95); MPV 8.9 fL (8.0-11.0); Monocytes % 3.9; Neutrophils % 75.5; Platelet Count 286 10^3/uL (130-400); RBC 4.84 10^6/uL (4.36-5.78); RDW 13.8 % (11.8-14.1); WBC 9.03 10^3/uL (4.4-10.8)
[2023-01-14 11:49] LABS: ALT 25 U/L (16-63); AST 19 U/L (15-37); Albumin 3.8 g/dL (3.4-5.0); Alkaline Phosphatase 153 U/L (46-116); Anion Gap 10.3 mmol/L (3-11); BUN 13 mg/dL (7-18); Bilirubin, Direct 0.2 mg/dL (0.0-0.2); Bilirubin, Total 0.4 mg/dL (0.2-1.0); CO2 25.7 mmol/L (21.0-32.0); CREATININE 1.3 mg/dL (0.70-1.30); Calcium 8.7 mg/dL (8.5-10.1); Calculated LDL 54 mg/dL (<100); Chloride 104 mmol/L (98-107); Cholesterol 129 mg/dL (<200); Estimated GFR 61.35 (mL/min/1.73m2); Glucose 173 mg/dL (74-106); HDL Cholesterol 58 mg/dL (40-60); Potassium 3.9 mmol/L (3.5-5.1); Sodium 140 mmol/L (136-145); TSH 1.35 uIU/mL (0.36-3.74); Total Protein 7.5 g/dL (6.4-8.2); Triglyceride 88 mg/dL (<150)
== END 2023-01-14 13:29 | disposition home or self-care (01) ==
LOC: LBO 13:29
PROVIDERS: PCP Nurse Practitioner Family; Visit Provider Counselor Addiction (Substance Use Disorder)
DX: Z79.899 Other long term (current) drug therapy (principal); F20.9 Schizophrenia, unspecified
CPT/HCPCS: 36415; 80053; 80061; 80076; 84443; 85025

== ENCOUNTER 2023-02-07 14:10 | Outpatient (CLI) | payer MEDICARE, MEDICAID, SELFPAY ==
[2023-02-07 14:24] LABS: Abs Immature Grans 0.06 10^3/uL (0.0-0.06); Absolute Basophil Count 0.03 10^3/uL (0.0-0.2); Absolute Eosinophil Count 0.25 10^3/uL (0.0-0.7); Absolute Lymphocyte Count 1.82 10^3/uL (1.2-3.4); Absolute Monocyte Count 0.96 10^3/uL (0.1-0.8); Absolute Neutrophil Count 4.24 10^3/uL (1.2-6.7); Basophils % 0.4; Eosinophils % 3.4; HCT 41.6 % (40.0-50.0); HGB 13.2 g/dL (13.5-17.5); Immature Grans % 0.8; Lymphocytes % 24.7; MCHC 31.7 % (32.0-36.0); MCV 88 fL (80-95); MPV 8.6 fL (8.0-11.0); Neutrophils % 57.7; Platelet Count 313 10^3/uL (130-400); RBC 4.71 10^6/uL (4.36-5.78); RDW 14.3 % (11.8-14.1); RDW-SD 46.6 fL; WBC 7.36 10^3/uL (4.4-10.8)
[2023-02-07 14:35] LABS: ALT 19 U/L (16-63); AST 22 U/L (15-37); Albumin 3.5 g/dL (3.4-5.0); Alkaline Phosphatase 136 U/L (46-116); Anion Gap 10.3 mmol/L (3-11); BUN 14 mg/dL (7-18); Bilirubin, Direct 0.1 mg/dL (0.0-0.2); Bilirubin, Total 0.3 mg/dL (0.2-1.0); CO2 26.7 mmol/L (21.0-32.0); CREATININE 1.4 mg/dL (0.70-1.30); Calcium 8.3 mg/dL (8.5-10.1); Chloride 102 mmol/L (98-107); Estimated GFR 56.13 (mL/min/1.73m2); Glucose 120 mg/dL (74-106); Potassium 3.8 mmol/L (3.5-5.1); Sodium 139 mmol/L (136-145); TSH 1.31 uIU/mL (0.36-3.74); Total Protein 7.5 g/dL (6.4-8.2)
[2023-02-07 14:51] LABS: Calculated LDL 46 mg/dL (<100); Cholesterol 122 mg/dL (<200); HDL Cholesterol 54 mg/dL (40-60); Triglyceride 113 mg/dL (<150)
== END 2023-02-07 14:11 | disposition home or self-care (01) ==
LOC: LBO 14:10
PROVIDERS: PCP Nurse Practitioner Family; Visit Provider Counselor Addiction (Substance Use Disorder)
DX: F20.9 Schizophrenia, unspecified (principal); Z79.899 Other long term (current) drug therapy
CPT/HCPCS: 36415; 80053; 80061; 80076; 84443; 85025

== ENCOUNTER 2023-03-11 09:22 | Outpatient (CLI) | payer MEDICARE, MEDICAID, SELFPAY ==
[2023-03-11 09:27] LABS: Abs Immature Grans 0.08 10^3/uL (0.0-0.06); Absolute Basophil Count 0.04 10^3/uL (0.0-0.2); Absolute Eosinophil Count 0.04 10^3/uL (0.0-0.7); Absolute Lymphocyte Count 2.08 10^3/uL (1.2-3.4); Absolute Monocyte Count 0.61 10^3/uL (0.1-0.8); Absolute Neutrophil Count 6.34 10^3/uL (1.2-6.7); Basophils % 0.4; Eosinophils % 0.4; HGB 13.6 g/dL (13.5-17.5); Immature Grans % 0.9; Lymphocytes % 22.6; MCH 27.8 pg (27.0-33.0); MCHC 31.6 % (32.0-36.0); MCV 88 fL (80-95); MPV 8.6 fL (8.0-11.0); Monocytes % 6.6; Neutrophils % 69.1; Platelet Count 356 10^3/uL (130-400); RDW 15.3 % (11.8-14.1); WBC 9.19 10^3/uL (4.4-10.8)
[2023-03-11 10:30] LABS: ALT 22 U/L (16-63); AST 16 U/L (15-37); Albumin 3.7 g/dL (3.4-5.0); Alkaline Phosphatase 143 U/L (46-116); Anion Gap 8.6 mmol/L (3-11); BUN 15 mg/dL (7-18); Bilirubin, Direct 0.1 mg/dL (0.0-0.2); Bilirubin, Total 0.4 mg/dL (0.2-1.0); CO2 27.4 mmol/L (21.0-32.0); CREATININE 1.1 mg/dL (0.70-1.30); Calcium 8.9 mg/dL (8.5-10.1); Chloride 105 mmol/L (98-107); Glucose 112 mg/dL (74-106); Potassium 4.3 mmol/L (3.5-5.1); Sodium 141 mmol/L (136-145); TSH 1.19 uIU/mL (0.36-3.74); Total Protein 7.6 g/dL (6.4-8.2)
[2023-03-11 11:06] LABS: Calculated LDL 73 mg/dL (<100); Cholesterol 147 mg/dL (<200); HDL Cholesterol 62 mg/dL (40-60); Triglyceride 62 mg/dL (<150)
== END 2023-03-11 09:23 | disposition home or self-care (01) ==
LOC: LBO 09:23
PROVIDERS: PCP Nurse Practitioner Family; Visit Provider Counselor Addiction (Substance Use Disorder)
DX: F20.9 Schizophrenia, unspecified (principal); Z79.899 Other long term (current) drug therapy
CPT/HCPCS: 36415; 80053; 80061; 80076; 84443; 85025

== ENCOUNTER 2023-04-08 12:26 | Outpatient (CLI) | payer MEDICARE, MEDICAID, SELFPAY ==
[2023-04-08 09:09] LABS: Abs Immature Grans 0.05 10^3/uL (0.0-0.06); Absolute Basophil Count 0.03 10^3/uL (0.0-0.2); Absolute Eosinophil Count 0.01 10^3/uL (0.0-0.7); Absolute Lymphocyte Count 2.25 10^3/uL (1.2-3.4); Absolute Monocyte Count 0.62 10^3/uL (0.1-0.8); Absolute Neutrophil Count 4.67 10^3/uL (1.2-6.7); Basophils % 0.4; Eosinophils % 0.1; HCT 42.7 % (40.0-50.0); HGB 13.5 g/dL (13.5-17.5); Immature Grans % 0.7; Lymphocytes % 29.5; MCH 27.7 pg (27.0-33.0); MCHC 31.6 % (32.0-36.0); MCV 88 fL (80-95); MPV 8.6 fL (8.0-11.0); Monocytes % 8.1; Neutrophils % 61.2; Platelet Count 304 10^3/uL (130-400); RBC 4.88 10^6/uL (4.36-5.78); RDW 15.5 % (11.8-14.1); RDW-SD 49.8 fL; WBC 7.63 10^3/uL (4.4-10.8)
== END 2023-04-08 12:27 | disposition home or self-care (01) ==
LOC: LBO 12:26
PROVIDERS: PCP Nurse Practitioner Family; Visit Provider Counselor Addiction (Substance Use Disorder)
DX: F20.9 Schizophrenia, unspecified (principal); Z79.899 Other long term (current) drug therapy
CPT/HCPCS: 36415; 85025

== ENCOUNTER 2023-05-06 09:15 | Outpatient (CLI) | payer MEDICARE, MEDICAID, SELFPAY ==
[2023-05-06 09:45] LABS: Abs Immature Grans 0.06 10^3/uL (0.0-0.06); Absolute Basophil Count 0.04 10^3/uL (0.0-0.2); Absolute Eosinophil Count 0.01 10^3/uL (0.0-0.7); Absolute Lymphocyte Count 1.87 10^3/uL (1.2-3.4); Absolute Monocyte Count 0.64 10^3/uL (0.1-0.8); Absolute Neutrophil Count 7.78 10^3/uL (1.2-6.7); Basophils % 0.4; Eosinophils % 0.1; HGB 13.3 g/dL (13.5-17.5); Immature Grans % 0.6; MCH 28.2 pg (27.0-33.0); MCHC 30.9 % (32.0-36.0); MCV 91 fL (80-95); MPV 8.7 fL (8.0-11.0); Monocytes % 6.2; Neutrophils % 74.7; Platelet Count 265 10^3/uL (130-400); RBC 4.71 10^6/uL (4.36-5.78); RDW 15.6 % (11.8-14.1); RDW-SD 52.2 fL
== END 2023-05-06 09:16 | disposition home or self-care (01) ==
LOC: LBO 10:11
PROVIDERS: PCP Nurse Practitioner Family; Visit Provider Counselor Addiction (Substance Use Disorder)
DX: F20.9 Schizophrenia, unspecified (principal); Z79.899 Other long term (current) drug therapy
CPT/HCPCS: 36415; 85025

== ENCOUNTER → 2023-05-18 11:21 | Outpatient (CLI) | payer MEDICARE, MEDICAID, SELFPAY ==
--- NOTE | 2023-05-18 | DI.RAD_ITS ---
Exam(s) XR SHOULDER LT COMPLETE 2+V EXAM: XR SHOULDER LT COMPLETE 2+V CLINICAL HISTORY: M25.513 PAIN IN LEFT SHOULDER. TECHNIQUE: 2D digital imaging was performed. COMPARISON: No exams were available for comparison FINDINGS: Five views. There is no evidence of fracture or dislocation or abnormal soft tissue calcifications. Subacromial space is not diminished. There are no degenerative changes in the glenohumeral joint. AC joint appe ars unremarkable. Bone density normal. No significant osseous lesions evident. IMPRESSION: No acute radiographic findings in the left shoulder. DATA REPOSITORY: RADIATION DOSE DELIVERED:
--- NOTE | 2023-05-18 12:03 | DI.VRAD_ITS ---
PROCEDURE INFORMATION: Exam: XR Left Shoulder Exam date and time: 05/18/2023 11:32 AM Age: 63 years old Clinical indication: Other: Left shoulder pain after fall 05/15/23 TECHNIQUE: Imaging protocol: Radiologic exam of the left shoulder. Views: 2 or more views. COMPARISON: CT CHEST/ABD/PEL W 09/06/2022 1:32 PM FINDINGS: Bones/joints: No acute fracture or dislocation. Soft tissues: Unremarkable. IMPRESSION: No acute fracture. Dictated and Authenticated by: Sally Kerns MD. Ordering:KYLE FERREIRA MD
== END ==
PROVIDERS: PCP Nurse Practitioner Family; Visit Provider Nurse Practitioner Family
DX: M25.512 Pain in left shoulder (principal)
CPT/HCPCS: 73030

== ENCOUNTER → 2023-05-22 12:23 | Outpatient (BNVA) | payer MEDICARE, MEDICAID, SELFPAY | PROVIDERS: PCP Nurse Practitioner Family; Referring Provider Nurse Practitioner Family; Visit Provider Nurse Practitioner Adult Health | DX: G31.84 Mild cognitive impairment of uncertain or unknown etiology (principal); R90.89 Other abnormal findings on diagnostic imaging of central nervous system | CPT/HCPCS: 99215 ==

== ENCOUNTER 2023-06-03 09:42 | Outpatient (CLI) | payer MEDICARE, MEDICAID, SELFPAY ==
[2023-06-03 09:50] LABS: Abs Immature Grans 0.03 10^3/uL (0.0-0.06); Absolute Basophil Count 0.02 10^3/uL (0.0-0.2); Absolute Lymphocyte Count 1.68 10^3/uL (1.2-3.4); Absolute Monocyte Count 0.52 10^3/uL (0.1-0.8); Absolute Neutrophil Count 4.89 10^3/uL (1.2-6.7); Basophils % 0.3; HCT 43.8 % (40.0-50.0); Immature Grans % 0.4; Lymphocytes % 23.5; MCH 28.4 pg (27.0-33.0); MCV 89 fL (80-95); MPV 8.8 fL (8.0-11.0); Monocytes % 7.3; Neutrophils % 68.5; Platelet Count 276 10^3/uL (130-400); RBC 4.93 10^6/uL (4.36-5.78); RDW 15.1 % (11.8-14.1); RDW-SD 49.6 fL; WBC 7.14 10^3/uL (4.4-10.8)
[2023-06-03 10:57] LABS: ALT 30 U/L (16-63); AST 16 U/L (15-37); Albumin 3.9 g/dL (3.4-5.0); Alkaline Phosphatase 163 U/L (46-116); Anion Gap 12.9 mmol/L (3-11); BUN 19 mg/dL (7-18); Bilirubin, Total 0.4 mg/dL (0.2-1.0); CO2 27.1 mmol/L (21.0-32.0); CREATININE 1.1 mg/dL (0.70-1.30); Calcium 8.6 mg/dL (8.5-10.1); Calculated LDL 89 mg/dL (<100); Chloride 105 mmol/L (98-107); Cholesterol 174 mg/dL (<200); Glucose 113 mg/dL (74-106); HDL Cholesterol 69 mg/dL (40-60); Potassium 4.6 mmol/L (3.5-5.1); Sodium 145 mmol/L (136-145); TSH 1.46 uIU/Ml (0.36-3.74); Total Protein 7.1 g/dL (6.4-8.2); Triglyceride 82 mg/dL (<150)
[2023-06-03 11:08] LABS: Bilirubin, Direct 0.1 mg/dL (0.0-0.2)
== END 2023-06-03 09:43 | disposition home or self-care (01) ==
LOC: LBO 09:42
PROVIDERS: PCP Nurse Practitioner Family; Visit Provider Counselor Addiction (Substance Use Disorder)
DX: Z79.899 Other long term (current) drug therapy (principal); F20.9 Schizophrenia, unspecified
CPT/HCPCS: 36415; 80053; 80061; 80076; 84443; 85025

== ENCOUNTER → 2023-06-14 02:52 | Outpatient (CLI) | payer MEDICARE, MEDICAID, SELFPAY ==
--- NOTE | 2023-06-14 08:10 | DI.MRI_ITS ---
Exam(s) MR BRAIN WO EXAM: MR BRAIN WO CLINICAL HISTORY: Repeat MRI,check stability of abnl jeseiing,r90.89,? infarct TECHNIQUE: Multiplanar multisequence MRI of the brain was performed. COMPARISON: MR MR BRAIN WO from 04/10/2022 FINDINGS: CEREBRAL PARENCHYMA: There is no evidence of intracranial hemorrhage, mass effect, or shift of midline structures. There are no extra-axial fluid collections. Ventricles are not enlarged or shifted. No new significant signal abnormality evident in the cerebellar hemispheres nor within the hector, midb rain, and thalami. The previously described 6 x 5 mm focus of FLAIR bright signal abnormality in the left frontoparietal white matter is unchanged and again not associated with hemorrhage, surrounding edema nor restricted diffusion. Other smaller foci previously described are also unchanged. There are no new foci of si gnal abnormality in the brain. There is no significant focal signal abnormality evident on diffusion imaging to suggest acute ischem ic event. PITUITARY GLAND: No mass nor parasellar abnormality. No obvious abnormality in the cavernous sinuses. FLOW VOIDS: The expected flow void are noted. No evidence of obvious aneurysm nor obvious vascular ma lformation. PARANASAL SINUSES: There is now abundant mucosal thickening and fluid level within the right maxillar y sinus consistent with sinusitis, not previously present. The opposite-left maxillary sinus is harmony r as are the sphenoid and frontal sinuses. There is opacification of a few right-sided ethmoidal air cells noted. ORBITS: No obvious findings. IMPRESSION: No significant acute intracranial findings on this noninfused MRI scan of the brain. The previously described 5 x 6 mm focus of signal abnormality in left frontoparietal white matter is unchanged and again not associated with hemorrhage, surrounding edema, nor restricted diffusion. The re are no new white matter signal foci. There is abundant mucosal thickening and fluid level now evident in the right maxillary sinus consist ent with sinusitis, not previously evident on the March 2022 MRI scan. DATA REPOSITORY:
== END ==
PROVIDERS: PCP Nurse Practitioner Family; Visit Provider Nurse Practitioner Adult Health
DX: R90.89 Other abnormal findings on diagnostic imaging of central nervous system (principal)
CPT/HCPCS: 70551

== ENCOUNTER 2023-07-01 11:59 | Outpatient (CLI) | payer MEDICARE, MEDICAID, SELFPAY ==
[2023-07-01 12:28] LABS: Abs Immature Grans 0.08 10^3/uL (0.0-0.06); Absolute Basophil Count 0.03 10^3/uL (0.0-0.2); Absolute Lymphocyte Count 2.35 10^3/uL (1.2-3.4); Absolute Monocyte Count 0.84 10^3/uL (0.1-0.8); Absolute Neutrophil Count 9.69 10^3/uL (1.2-6.7); Basophils % 0.2 %; HCT 42.9 % (40.0-50.0); HGB 13.8 g/dL (13.5-17.5); Immature Grans % 0.6 %; Lymphocytes % 18.1 %; MCH 28.6 pg (27.0-33.0); MCHC 32.2 % (32.0-36.0); MCV 89 fL (80-95); MPV 8.9 fL (8.0-11.0); Monocytes % 6.5 %; Neutrophils % 74.6 %; Platelet Count 290 10^3/uL (130-400); RBC 4.83 10^6/uL (4.36-5.78); RDW 14.3 % (11.8-14.1); WBC 12.99 10^3/uL (4.4-10.8)
== END 2023-07-01 12:00 | disposition home or self-care (01) ==
PROVIDERS: PCP Nurse Practitioner Family; Visit Provider Nurse Practitioner Psychiatric/Mental Health
DX: F25.0 Schizoaffective disorder, bipolar type (principal); Z79.899 Other long term (current) drug therapy
CPT/HCPCS: 36415; 85025

== ENCOUNTER 2023-07-26 12:42 | Outpatient (CLI) | payer MEDICARE, MEDICAID, SELFPAY ==
[2023-07-26 09:24] LABS: Abs Immature Grans 0.04 10^3/uL (0.0-0.06); Absolute Basophil Count 0.02 10^3/uL (0.0-0.2); Absolute Eosinophil Count 0.01 10^3/uL (0.0-0.7); Absolute Lymphocyte Count 1.95 10^3/uL (1.2-3.4); Absolute Neutrophil Count 7.22 10^3/uL (1.2-6.7); Basophils % 0.2 %; Eosinophils % 0.1 %; HCT 42.9 % (40.0-50.0); HGB 13.8 g/dL (13.5-17.5); Immature Grans % 0.4 %; Lymphocytes % 19.6 %; MCH 28.8 pg (27.0-33.0); MCHC 32.2 % (32.0-36.0); MCV 89 fL (80-95); MPV 8.7 fL (8.0-11.0); Neutrophils % 72.7 %; Platelet Count 257 10^3/uL (130-400); RDW 14.7 % (11.8-14.1); RDW-SD 47.9 fL; WBC 9.94 10^3/uL (4.4-10.8)
== END 2023-07-26 12:43 | disposition home or self-care (01) ==
LOC: LBO 12:42
PROVIDERS: PCP Nurse Practitioner Family; Visit Provider Nurse Practitioner Psychiatric/Mental Health
DX: Z79.899 Other long term (current) drug therapy (principal)
CPT/HCPCS: 36415; 85025

== ENCOUNTER 2023-08-21 10:29 | Outpatient (CLI) | payer MEDICARE, MEDICAID, SELFPAY ==
[2023-08-21 10:08] LABS: Absolute Basophil Count 0.04 10^3/uL (0.0-0.2); Absolute Eosinophil Count 0.01 10^3/uL (0.0-0.7); Absolute Lymphocyte Count 2.19 10^3/uL (1.2-3.4); Absolute Monocyte Count 0.81 10^3/uL (0.1-0.8); Absolute Neutrophil Count 7.51 10^3/uL (1.2-6.7); Basophils % 0.4 %; Eosinophils % 0.1 %; HCT 41.1 % (40.0-50.0); HGB 13.4 g/dL (13.5-17.5); Immature Grans % 0.9 %; Lymphocytes % 20.5 %; MCH 29.1 pg (27.0-33.0); MCHC 32.6 % (32.0-36.0); MCV 89 fL (80-95); MPV 8.5 fL (8.0-11.0); Monocytes % 7.6 %; Neutrophils % 70.5 %; Platelet Count 308 10^3/uL (130-400); RBC 4.61 10^6/uL (4.36-5.78); RDW 14.8 % (11.8-14.1); RDW-SD 48.2 fL; WBC 10.66 10^3/uL (4.4-10.8)
== END 2023-08-21 10:30 | disposition home or self-care (01) ==
PROVIDERS: PCP Nurse Practitioner Family; Visit Provider Nurse Practitioner Psychiatric/Mental Health
DX: Z79.899 Other long term (current) drug therapy (principal); F25.0 Schizoaffective disorder, bipolar type
CPT/HCPCS: 36415; 85025

== ENCOUNTER 2023-09-17 15:49 | Outpatient (CLI) | payer MEDICARE, MEDICAID, SELFPAY ==
[2023-09-17 11:53] LABS: Abs Immature Grans 0.04 10^3/uL (0.0-0.06); Absolute Basophil Count 0.02 10^3/uL (0.0-0.2); Absolute Eosinophil Count 0.02 10^3/uL (0.0-0.7); Absolute Lymphocyte Count 1.99 10^3/uL (1.2-3.4); Basophils % 0.2 %; Eosinophils % 0.2 %; HCT 42.5 % (40.0-50.0); HGB 14.2 g/dL (13.5-17.5); Immature Grans % 0.3 %; MCH 29.3 pg (27.0-33.0); MCHC 33.4 % (32.0-36.0); MCV 88 fL (80-95); Monocytes % 5.6 %; Neutrophils % 76.7 %; Platelet Count 258 10^3/uL (130-400); RBC 4.84 10^6/uL (4.36-5.78); RDW 14.9 % (11.8-14.1); RDW-SD 48.1 fL; WBC 11.69 10^3/uL (4.4-10.8)
[2023-09-17 11:55] LABS: Absolute Monocyte Count 0.65 10^3/uL (0.1-0.8); Absolute Neutrophil Count 8.97 10^3/uL (1.2-6.7)
== END 2023-09-17 15:50 | disposition home or self-care (01) ==
LOC: LBO 15:52
PROVIDERS: PCP Nurse Practitioner Family; Visit Provider Nurse Practitioner Psychiatric/Mental Health
DX: F25.0 Schizoaffective disorder, bipolar type (principal)
CPT/HCPCS: 36415; 85025

== ENCOUNTER 2023-10-15 09:35 | Outpatient (CLI) | payer MEDICARE, MEDICAID, SELFPAY ==
[2023-10-15 08:20] LABS: ALT 24 U/L (16-63); AST 20 U/L (15-37); Albumin 3.9 g/dL (3.4-5.0); Alkaline Phosphatase 167 U/L (46-116); BUN 17 mg/dL (7-18); Bilirubin, Total 0.49 mg/dL (0.2-1.0); CREATININE 1.1 mg/dL (0.70-1.30); Calcium 8.3 mg/dL (8.5-10.1); Chloride 105 mmol/L (98-107); Glucose 138 mg/dL (74-106); Potassium 4.2 mmol/L (3.5-5.1); Sodium 143 mmol/L (136-145); Total Protein 7.4 g/dL (6.4-8.2)
[2023-10-15 08:31] LABS: Hemoglobin A1C 5.8 % (<5.7)
[2023-10-18 03:41] LABS: Clozapine 1480 ng/mL (350-600); Clozapine+Norclozapine Total 2037 ng/mL; Norclozapine 557 ng/mL
== END 2023-10-15 09:36 | disposition home or self-care (01) ==
LOC: LBO 09:36
PROVIDERS: PCP Nurse Practitioner Family; Visit Provider Nurse Practitioner Family
DX: R73.03 Prediabetes (principal); R41.3 Other amnesia
CPT/HCPCS: 36415; 80053; 80159; 83036

== ENCOUNTER 2023-10-17 03:42 | Outpatient (CLI) | payer MEDICARE, MEDICAID, SELFPAY ==
[2023-10-17 08:08] LABS: Abs Immature Grans 0.05 10^3/uL (0.0-0.06); Absolute Basophil Count 0.03 10^3/uL (0.0-0.2); Absolute Eosinophil Count 0.01 10^3/uL (0.0-0.7); Absolute Lymphocyte Count 1.95 10^3/uL (1.2-3.4); Absolute Monocyte Count 0.85 10^3/uL (0.1-0.8); Absolute Neutrophil Count 10.44 10^3/uL (1.2-6.7); Basophils % 0.2 %; Eosinophils % 0.1 %; HGB 14.4 g/dL (13.5-17.5); Immature Grans % 0.4 %; Lymphocytes % 14.6 %; MCH 29.3 pg (27.0-33.0); MCHC 32.7 % (32.0-36.0); MCV 90 fL (80-95); MPV 8.9 fL (8.0-11.0); Monocytes % 6.4 %; Neutrophils % 78.3 %; Platelet Count 331 10^3/uL (130-400); RBC 4.91 10^6/uL (4.36-5.78); RDW 14.7 % (11.8-14.1); RDW-SD 48.6 fL; WBC 13.33 10^3/uL (4.4-10.8)
== END 2023-10-17 03:43 | disposition home or self-care (01) ==
PROVIDERS: PCP Nurse Practitioner Family; Visit Provider Nurse Practitioner Psychiatric/Mental Health
DX: Z79.899 Other long term (current) drug therapy (principal); F25.0 Schizoaffective disorder, bipolar type
CPT/HCPCS: 36415; 85025

== ENCOUNTER → 2023-10-24 14:26 | Outpatient (BNVA) | payer MEDICARE, MEDICAID, SELFPAY | PROVIDERS: PCP Nurse Practitioner Family; Referring Provider Nurse Practitioner Family; Visit Provider Nurse Practitioner Adult Health | DX: R29.6 Repeated falls (principal); G31.84 Mild cognitive impairment of uncertain or unknown etiology | CPT/HCPCS: 99214 ==

== ENCOUNTER 2023-11-13 10:56 | Outpatient (CLI) | payer MEDICARE, MEDICAID, SELFPAY ==
[2023-11-13 11:07] LABS: Abs Immature Grans 0.06 10^3/uL (0.0-0.06); Absolute Basophil Count 0.04 10^3/uL (0.0-0.2); Absolute Eosinophil Count 0.02 10^3/uL (0.0-0.7); Absolute Lymphocyte Count 2.18 10^3/uL (1.2-3.4); Absolute Monocyte Count 0.81 10^3/uL (0.1-0.8); Basophils % 0.3 %; Eosinophils % 0.2 %; HCT 43.7 % (40.0-50.0); HGB 14.2 g/dL (13.5-17.5); Immature Grans % 0.5 %; Lymphocytes % 18.7 %; MCH 29.3 pg (27.0-33.0); MCHC 32.5 % (32.0-36.0); MCV 90 fL (80-95); MPV 8.7 fL (8.0-11.0); Monocytes % 6.9 %; Neutrophils % 73.4 %; Platelet Count 294 10^3/uL (130-400); RBC 4.85 10^6/uL (4.36-5.78); RDW 14.6 % (11.8-14.1); RDW-SD 48.2 fL; WBC 11.67 10^3/uL (4.4-10.8)
[2023-11-13 11:09] LABS: Absolute Neutrophil Count 8.57 10^3/uL (1.2-6.7)
[2023-11-15 19:29] LABS: Clozapine 725 ng/mL (350-600); Clozapine+Norclozapine Total 1120 ng/mL; Norclozapine 395 ng/mL
== END 2023-11-13 10:57 | disposition home or self-care (01) ==
LOC: LBO 10:57
PROVIDERS: PCP Nurse Practitioner Family; Visit Provider Nurse Practitioner Psychiatric/Mental Health
DX: F25.0 Schizoaffective disorder, bipolar type (principal); Z79.899 Other long term (current) drug therapy
CPT/HCPCS: 36415; 80159; 85025

== ENCOUNTER → 2023-11-20 08:37 | Outpatient (BNVA) | payer MEDICARE, MEDICAID, SELFPAY | PROVIDERS: PCP Nurse Practitioner Family; Referring Provider Nurse Practitioner Family; Visit Provider Psychiatry & Neurology Neurology | DX: R41.3 Other amnesia (principal); R29.6 Repeated falls; F25.9 Schizoaffective disorder, unspecified; G47.33 Obstructive sleep apnea (adult) (pediatric) | CPT/HCPCS: 99215 ==

== ENCOUNTER 2023-12-05 14:05 | Outpatient (CLI) | payer MEDICARE, MEDICAID, SELFPAY ==
[2023-12-05 14:06] LABS: Abs Immature Grans 0.03 10^3/uL (0.0-0.06); Absolute Basophil Count 0.02 10^3/uL (0.0-0.2); Absolute Eosinophil Count 0.03 10^3/uL (0.0-0.7); Absolute Lymphocyte Count 2.15 10^3/uL (1.2-3.4); Absolute Monocyte Count 0.63 10^3/uL (0.1-0.8); Absolute Neutrophil Count 4.85 10^3/uL (1.2-6.7); Basophils % 0.3 %; Eosinophils % 0.4 %; HCT 41.4 % (40.0-50.0); HGB 13.4 g/dL (13.5-17.5); Immature Grans % 0.4 %; Lymphocytes % 27.9 %; MCH 28.7 pg (27.0-33.0); MCHC 32.4 % (32.0-36.0); MCV 89 fL (80-95); MPV 9.3 fL (8.0-11.0); Monocytes % 8.2 %; Neutrophils % 62.8 %; Platelet Count 298 10^3/uL (130-400); RBC 4.67 10^6/uL (4.36-5.78); RDW 14.6 % (11.8-14.1); WBC 7.71 10^3/uL (4.4-10.8)
== END 2023-12-05 14:06 | disposition home or self-care (01) ==
LOC: LBO 14:07
PROVIDERS: PCP Nurse Practitioner Family; Visit Provider Nurse Practitioner Psychiatric/Mental Health
DX: Z79.899 Other long term (current) drug therapy (principal); F25.0 Schizoaffective disorder, bipolar type
CPT/HCPCS: 36415; 85025

== ENCOUNTER 2024-01-02 14:56 | Outpatient (CLI) | payer MEDICARE, MEDICAID, SELFPAY ==
[2024-01-02 14:29] LABS: Abs Immature Grans 0.04 10^3/uL (0.0-0.06); Absolute Basophil Count 0.03 10^3/uL (0.0-0.2); Absolute Eosinophil Count 0.04 10^3/uL (0.0-0.7); Absolute Lymphocyte Count 2.49 10^3/uL (1.2-3.4); Absolute Monocyte Count 0.67 10^3/uL (0.1-0.8); Absolute Neutrophil Count 5.85 10^3/uL (1.2-6.7); Basophils % 0.3 %; Eosinophils % 0.4 %; HCT 43.6 % (40.0-50.0); HGB 13.8 g/dL (13.5-17.5); Immature Grans % 0.4 %; Lymphocytes % 27.3 %; MCH 28.9 pg (27.0-33.0); MCHC 31.7 % (32.0-36.0); MCV 91 fL (80-95); MPV 8.6 fL (8.0-11.0); Monocytes % 7.3 %; Neutrophils % 64.3 %; Platelet Count 267 10^3/uL (130-400); RBC 4.77 10^6/uL (4.36-5.78); RDW 14.3 % (11.8-14.1); RDW-SD 48.2 fL; WBC 9.12 10^3/uL (4.4-10.8)
== END 2024-01-02 14:57 | disposition home or self-care (01) ==
LOC: LBO 14:57
PROVIDERS: PCP Nurse Practitioner Family; Visit Provider Nurse Practitioner Psychiatric/Mental Health
DX: F25.0 Schizoaffective disorder, bipolar type (principal)
CPT/HCPCS: 36415; 85025

== ENCOUNTER 2024-01-27 09:22 | Outpatient (CLI) | payer MEDICARE, MEDICAID, SELFPAY ==
[2024-01-27 09:18] LABS: Abs Immature Grans 0.04 10^3/uL (0.0-0.06); Absolute Basophil Count 0.02 10^3/uL (0.0-0.2); Absolute Eosinophil Count 0.01 10^3/uL (0.0-0.7); Absolute Lymphocyte Count 2.37 10^3/uL (1.2-3.4); Absolute Monocyte Count 0.64 10^3/uL (0.1-0.8); Absolute Neutrophil Count 4.73 10^3/uL (1.2-6.7); Basophils % 0.3 %; Eosinophils % 0.1 %; HCT 42.4 % (40.0-50.0); HGB 13.8 g/dL (13.5-17.5); Immature Grans % 0.5 %; Lymphocytes % 30.3 %; MCH 29.2 pg (27.0-33.0); MCHC 32.5 % (32.0-36.0); MCV 90 fL (80-95); MPV 8.8 fL (8.0-11.0); Monocytes % 8.2 %; Neutrophils % 60.6 %; Platelet Count 299 10^3/uL (130-400); RBC 4.73 10^6/uL (4.36-5.78); RDW 14.1 % (11.8-14.1); RDW-SD 46.3 fL; WBC 7.81 10^3/uL (4.4-10.8)
== END 2024-01-27 09:23 | disposition home or self-care (01) ==
LOC: LBO 09:22
PROVIDERS: PCP Nurse Practitioner Family; Visit Provider Nurse Practitioner Psychiatric/Mental Health
DX: Z79.899 Other long term (current) drug therapy (principal)
CPT/HCPCS: 36415; 85025

== ENCOUNTER → 2024-01-30 08:00 | Outpatient (BNVA) | payer MEDICARE, MEDICAID, SELFPAY | PROVIDERS: PCP Nurse Practitioner Family; Referring Provider Nurse Practitioner Family; Visit Provider Nurse Practitioner Adult Health | DX: G31.84 Mild cognitive impairment of uncertain or unknown etiology (principal); R29.6 Repeated falls | CPT/HCPCS: 99213 ==

== ENCOUNTER → 2024-02-19 09:29 | Outpatient (BNVA) | payer MEDICARE, MEDICAID, SELFPAY | PROVIDERS: PCP Nurse Practitioner Family; Visit Provider Psychiatry & Neurology Neurology | DX: R29.6 Repeated falls (principal); R41.3 Other amnesia; F25.9 Schizoaffective disorder, unspecified | CPT/HCPCS: 99214 ==

== ENCOUNTER 2024-03-03 16:17 | Outpatient (CLI) | payer MEDICARE, MEDICAID, SELFPAY ==
[2024-03-03 16:23] LABS: Abs Immature Grans 0.03 10^3/uL (0.0-0.06); Absolute Basophil Count 0.03 10^3/uL (0.0-0.2); Absolute Eosinophil Count 0.12 10^3/uL (0.0-0.7); Absolute Lymphocyte Count 2.54 10^3/uL (1.2-3.4); Absolute Monocyte Count 0.85 10^3/uL (0.1-0.8); Absolute Neutrophil Count 5.95 10^3/uL (1.2-6.7); Basophils % 0.3 %; Eosinophils % 1.3 %; HGB 13.5 g/dL (13.5-17.5); Immature Grans % 0.3 %; Lymphocytes % 26.7 %; MCH 29.2 pg (27.0-33.0); MCHC 32.9 % (32.0-36.0); MCV 89 fL (80-95); MPV 8.6 fL (8.0-11.0); Monocytes % 8.9 %; Neutrophils % 62.5 %; Platelet Count 296 10^3/uL (130-400); RBC 4.63 10^6/uL (4.36-5.78); RDW 14.1 % (11.8-14.1); RDW-SD 45.7 fL; WBC 9.52 10^3/uL (4.4-10.8)
== END 2024-03-03 16:18 | disposition home or self-care (01) ==
LOC: LBO 16:22
PROVIDERS: PCP Nurse Practitioner Family; Visit Provider Nurse Practitioner Psychiatric/Mental Health
DX: F25.0 Schizoaffective disorder, bipolar type (principal); Z79.899 Other long term (current) drug therapy
CPT/HCPCS: 36415; 85025

== ENCOUNTER 2024-04-02 12:46 | Outpatient (CLI) | payer MEDICARE, SELFPAY ==
[2024-04-02 09:20] LABS: Abs Immature Grans 0.05 10^3/uL (0.0-0.06); Absolute Basophil Count 0.03 10^3/uL (0.0-0.2); Absolute Eosinophil Count 0.13 10^3/uL (0.0-0.7); Absolute Lymphocyte Count 2.47 10^3/uL (1.2-3.4); Absolute Monocyte Count 0.57 10^3/uL (0.1-0.8); Absolute Neutrophil Count 5.95 10^3/uL (1.2-6.7); Basophils % 0.3 %; Eosinophils % 1.4 %; HCT 43.6 % (40.0-50.0); HGB 14.2 g/dL (13.5-17.5); Immature Grans % 0.5 %; Lymphocytes % 26.8 %; MCH 28.9 pg (27.0-33.0); MCHC 32.6 % (32.0-36.0); MCV 89 fL (80-95); MPV 8.7 fL (8.0-11.0); Monocytes % 6.2 %; Neutrophils % 64.8 %; Platelet Count 307 10^3/uL (130-400); RBC 4.91 10^6/uL (4.36-5.78); RDW 13.9 % (11.8-14.1); RDW-SD 45.6 fL
== END 2024-04-02 12:47 | disposition home or self-care (01) ==
LOC: LBO 12:49
PROVIDERS: PCP Nurse Practitioner Family; Visit Provider Nurse Practitioner Psychiatric/Mental Health
DX: Z79.899 Other long term (current) drug therapy (principal); F25.0 Schizoaffective disorder, bipolar type
CPT/HCPCS: 36415; 85025

== ENCOUNTER 2024-04-30 08:39 | Outpatient (CLI) | payer MEDICARE, SELFPAY ==
[2024-04-30 09:03] LABS: Abs Immature Grans 0.02 10^3/uL (0.0-0.06); Absolute Basophil Count 0.03 10^3/uL (0.0-0.2); Absolute Eosinophil Count 0.08 10^3/uL (0.0-0.7); Absolute Lymphocyte Count 1.77 10^3/uL (1.2-3.4); Absolute Neutrophil Count 4.19 10^3/uL (1.2-6.7); Basophils % 0.4 %; Eosinophils % 1.2 %; HCT 41.4 % (40.0-50.0); Immature Grans % 0.3 %; Lymphocytes % 26.5 %; MCH 29.5 pg (27.0-33.0); MCHC 33.8 % (32.0-36.0); MCV 87 fL (80-95); MPV 8.9 fL (8.0-11.0); Neutrophils % 62.6 %; Platelet Count 276 10^3/uL (130-400); RBC 4.75 10^6/uL (4.36-5.78); RDW 14.1 % (11.8-14.1); RDW-SD 45.4 fL; WBC 6.69 10^3/uL (4.4-10.8)
== END 2024-04-30 08:40 | disposition home or self-care (01) ==
LOC: LBO 08:39
PROVIDERS: PCP Nurse Practitioner Family; Visit Provider Nurse Practitioner Psychiatric/Mental Health
DX: Z79.899 Other long term (current) drug therapy (principal); F25.0 Schizoaffective disorder, bipolar type
CPT/HCPCS: 36415; 85025

== ENCOUNTER → 2024-05-06 08:00 | Outpatient (BNVA) | payer MEDICARE, SELFPAY | PROVIDERS: PCP Nurse Practitioner Family; Referring Provider Nurse Practitioner Family; Visit Provider Nurse Practitioner Adult Health | DX: G31.84 Mild cognitive impairment of uncertain or unknown etiology (principal) | CPT/HCPCS: 99215 ==

== ENCOUNTER 2024-05-27 13:37 | Outpatient (CLI) | payer MEDICARE, SELFPAY ==
[2024-05-27 14:05] LABS: Abs Immature Grans 0.04 10^3/uL (0.0-0.06); Absolute Basophil Count 0.04 10^3/uL (0.0-0.2); Absolute Eosinophil Count 0.11 10^3/uL (0.0-0.7); Absolute Monocyte Count 0.69 10^3/uL (0.1-0.8); Absolute Neutrophil Count 4.82 10^3/uL (1.2-6.7); Basophils % 0.5 %; Eosinophils % 1.3 %; HCT 42.9 % (40.0-50.0); HGB 13.8 g/dL (13.5-17.5); Immature Grans % 0.5 %; Lymphocytes % 32.9 %; MCH 29.2 pg (27.0-33.0); MCHC 32.2 % (32.0-36.0); MCV 91 fL (80-95); MPV 9.2 fL (8.0-11.0); Monocytes % 8.1 %; Neutrophils % 56.7 %; Platelet Count 328 10^3/uL (130-400); RBC 4.72 10^6/uL (4.36-5.78); RDW 13.9 % (11.8-14.1); RDW-SD 46.5 fL
== END 2024-05-27 13:38 | disposition home or self-care (01) ==
LOC: LBO 13:38
PROVIDERS: PCP Nurse Practitioner Family; Visit Provider Nurse Practitioner Psychiatric/Mental Health
DX: F25.0 Schizoaffective disorder, bipolar type (principal); Z79.899 Other long term (current) drug therapy
CPT/HCPCS: 36415; 85025

== ENCOUNTER 2024-07-23 08:41 | Outpatient (CLI) | payer MEDICARE, SELFPAY ==
[2024-07-23 07:52] LABS: Abs Immature Grans 0.03 10^3/uL (0.0-0.06); Absolute Basophil Count 0.03 10^3/uL (0.0-0.2); Absolute Eosinophil Count 0.09 10^3/uL (0.0-0.7); Absolute Lymphocyte Count 2.88 10^3/uL (1.2-3.4); Absolute Monocyte Count 0.76 10^3/uL (0.1-0.8); Absolute Neutrophil Count 4.22 10^3/uL (1.2-6.7); Basophils % 0.4 %; Eosinophils % 1.1 %; HCT 42.4 % (40.0-50.0); HGB 13.8 g/dL (13.5-17.5); Immature Grans % 0.4 %; MCH 29.3 pg (27.0-33.0); MCHC 32.5 % (32.0-36.0); MCV 90 fL (80-95); Monocytes % 9.5 %; Neutrophils % 52.6 %; Platelet Count 272 10^3/uL (130-400); RBC 4.71 10^6/uL (4.36-5.78); RDW 14.4 % (11.8-14.1); RDW-SD 47.2 fL; WBC 8.01 10^3/uL (4.4-10.8)
== END 2024-07-23 08:42 | disposition home or self-care (01) ==
LOC: LBO 08:42
PROVIDERS: PCP Nurse Practitioner Family; Visit Provider Nurse Practitioner Psychiatric/Mental Health
DX: F25.0 Schizoaffective disorder, bipolar type (principal); Z79.899 Other long term (current) drug therapy
CPT/HCPCS: 36415; 85025

== ENCOUNTER 2024-08-10 09:47 | Outpatient (CLI) | payer MEDICARE, SELFPAY ==
[2024-08-10 10:00] LABS: Abs Immature Grans 0.04 10^3/uL (0.0-0.06); Absolute Basophil Count 0.02 10^3/uL (0.0-0.2); Absolute Eosinophil Count 0.08 10^3/uL (0.0-0.7); Absolute Lymphocyte Count 2.12 10^3/uL (1.2-3.4); Absolute Monocyte Count 0.63 10^3/uL (0.1-0.8); Absolute Neutrophil Count 5.42 10^3/uL (1.2-6.7); Basophils % 0.2 %; HCT 42.5 % (40.0-50.0); HGB 13.9 g/dL (13.5-17.5); Immature Grans % 0.5 %; Lymphocytes % 25.5 %; MCH 28.9 pg (27.0-33.0); MCHC 32.7 % (32.0-36.0); MCV 88 fL (80-95); MPV 8.9 fL (8.0-11.0); Monocytes % 7.6 %; Neutrophils % 65.2 %; Platelet Count 280 10^3/uL (130-400); RBC 4.81 10^6/uL (4.36-5.78); RDW 14.2 % (11.8-14.1); RDW-SD 46.1 fL; WBC 8.31 10^3/uL (4.4-10.8)
== END 2024-08-10 09:48 | disposition home or self-care (01) ==
LOC: LBO 09:48
PROVIDERS: PCP Nurse Practitioner Family; Visit Provider Nurse Practitioner Psychiatric/Mental Health
DX: Z79.899 Other long term (current) drug therapy (principal); F25.0 Schizoaffective disorder, bipolar type
CPT/HCPCS: 36415; 85025

== ENCOUNTER 2024-09-30 14:48 | Outpatient (CLI) | payer MEDICARE, SELFPAY ==
[2024-09-30 14:22] LABS: Abs Immature Grans 0.03 10^3/uL (0.0-0.06); HCT 43.6 % (40.0-50.0); HGB 14.5 g/dL (13.5-17.5); Immature Grans % 0.3 %; MCH 30.0 pg (27.0-33.0); MCHC 33.3 % (32.0-36.0); MCV 90 fL (80-95); MPV 8.6 fL (8.0-11.0); Platelet Count 292 10^3/uL (130-400); RBC 4.84 10^6/uL (4.36-5.78); RDW 14.2 % (11.8-14.1); RDW-SD 46.7 fL; WBC 8.89 10^3/uL (4.4-10.8)
== END 2024-09-30 14:49 | disposition home or self-care (01) ==
LOC: LBO 14:49
PROVIDERS: PCP Nurse Practitioner Family; Visit Provider Nurse Practitioner Psychiatric/Mental Health
DX: Z79.899 Other long term (current) drug therapy (principal)
CPT/HCPCS: 36415; 85025

== ENCOUNTER 2024-11-20 19:25 | Outpatient (REF) | payer MEDICARE, SELFPAY ==
--- NOTE | 2024-11-20 17:30 | DI.RAD_ITS ---
Exam(s) XR CHEST 2V PA LATERAL EXAM: XR CHEST 2V PA LATERAL CLINICAL HISTORY: eval pathology. TECHNIQUE: 2D digital imaging was performed. COMPARISON: No exams were available for comparison FINDINGS: 2 views: Heart size is normal. The mediastinum is not widened. Lungs are clear. No infiltrates nor pleural effusions. IMPRESSION: No acute pulmonary findings. DATA REPOSITORY: RADIATION DOSE DELIVERED:
--- NOTE | 2024-11-20 18:29 | DI.VRAD_ITS ---
PROCEDURE INFORMATION: Exam: XR Chest Exam date and time: 11/20/2024 5:52 PM Age: 64 years old Clinical indication: Cough TECHNIQUE: Imaging protocol: Radiologic exam of the chest. Views: 2 views. COMPARISON: CT CHEST/ABD/PEL W 09/06/2022 1:32 PM FINDINGS: Lungs: Again noted is mild scarring/subsegmental atelectasis within the lower right lung. There is no pulmonary vascular congestion. Pleural spaces: There are no pleural effusions present. There is no evidence of pneumothorax. Heart/Mediastinum: The cardiomediastinal silhouette is within normal limits. Bones/joints: Unremarkable. IMPRESSION: No active cardiopulmonary disease identified. Dictated and Authenticated by: Prudencio Mcleod MD. Orderin Dian Marquez MD
== END 2024-11-20 19:45 ==
LOC: DI 19:25
PROVIDERS: PCP Nurse Practitioner Family; Visit Provider Nurse Practitioner Family
DX: R05.9 Cough, unspecified (principal)
CPT/HCPCS: 71046

== ENCOUNTER 2024-12-10 09:20 | Outpatient (CLI) | payer MEDICARE, SELFPAY ==
[2024-12-10 09:21] LABS: Abs Immature Grans 0.04 10^3/uL (0.0-0.06); HCT 41.9 % (40.0-50.0); HGB 13.7 g/dL (13.5-17.5); Immature Grans % 0.5 %; MCH 30.0 pg (27.0-33.0); MCHC 32.7 % (32.0-36.0); MCV 92 fL (80-95); MPV 8.7 fL (8.0-11.0); Platelet Count 320 10^3/uL (130-400); RBC 4.56 10^6/uL (4.36-5.78); RDW 13.9 % (11.8-14.1); RDW-SD 47.2 fL; WBC 8.17 10^3/uL (4.4-10.8)
== END 2024-12-10 09:21 | disposition home or self-care (01) ==
LOC: LBO 09:21
PROVIDERS: PCP Nurse Practitioner Family; Visit Provider Nurse Practitioner Psychiatric/Mental Health
DX: Z79.899 Other long term (current) drug therapy (principal)
CPT/HCPCS: 36415; 85025